=== PATIENT | female | born 1960 | race Caucasian/White ===

== ENCOUNTER 2024-11-25 14:22 | Outpatient (REF) | payer OTHER, SELFPAY ==
--- OUTSIDE RECORDS SUMMARY | 2024-11-25 18:30 | XMS_ITS | Clinical Summary ---
Author Organization [facility] [address] [place] [address] Address [address] [place], [place] Phone Care Team Providers Care Brake Lining Driller Name Role Phone Didi Suarez MD Primary Care Provider [phone] Allergies Active Allergy Reactions Criticality Noted Date [...] Description 09/08/2024 Telephone Obstetrics and Gynecology - [address] [phone] Juliette Lucas MD Appointment 09/07/2024 Telephone Obstetrics and Gynecology - [address] [phone] Juliette Lucas MD pcp office called from Last 3 Months Immunizations Name Administration Dates Next Due [employer] SARS-CoV-2 COVID -19, vector-nr, rS-Ad26, preservative free 12/16/2020 Surgical History Surgery Date Site/Laterality Comments OTHER SURGICAL HISTORY PROCEDURE: NC DILATION & CURETTAGE DX&/THER NONOBSTETRIC OTHER SURGICAL [...] AM EDT Office Visit Obstetrics and Gynecology [address] [phone] Janie Cano, SIDRA [address] [place] [address] Health Maintenance Due Date Last Done Comments [...] Most Recently Relevant to Health Maintenance Insurance [facility] Care Teams Brake Lining Driller Relationship Specialty Start Date End Date Didi Suarez MD [address] [place] [phone] PCP - General Internal Medicine 09/23/17
--- OUTSIDE RECORDS SUMMARY | 2024-11-25 18:30 | XMS_ITS | Clinical Summary ---
Author Organization [facility] Address [address] [place] [address] Care Team Providers Care Commissions Manager Name Role Phone Unknown, Primary Care Provider [...] age to complete this topic Care Teams Commissions Manager Relationship Specialty Start Date End Date Unknown, PCP - General 09/03/23
[2024-11-25 19:06] LABS: Ferritin 101 ng/mL (10-250)
[2024-11-25 19:29] LABS: Folate 15.4 ng/mL (> or = 4.0); Vitamin B12 1044 pg/mL (200-900)
== END 2024-11-25 14:23 | disposition home or self-care (01) ==
LOC: HO.HKASLDS 14:22
PROVIDERS: PCP Internal Medicine; Visit Provider Psychiatry & Neurology Neurology
DX: G47.62 Sleep related leg cramps (principal)
CPT/HCPCS: 36415; 82607; 82728; 82746

== ENCOUNTER 2024-11-25 14:22 | Outpatient (AMB) | payer OTHER, SELFPAY ==
--- NOTE | 2024-11-25 14:34 | MHC.OFFVIS ---
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 Intake Note: patient referred by Geeta Crane for bilateral leg cramps Allergies erythromycin base Allergy (Severe, Verified 11/25/24 14:38) rash sulfamethoxazole [From Bactrim] Allergy (Severe, Verified 11/25/24 14:38) Rash trimethoprim [From Bactrim] Allergy (Severe, Verified 11/25/24 14:38) Rash Penicillins Allergy (Mild, Verified 11/25/24 14:38) gi upset Medication List - Last Reconciled 11/25/24 by Emmanuelle Rich MD calcium carb,[id number] 315 mg-250 unit -200 mg (Citracal-D3 Plus Heart Health) tabs PO magnesium 250 mg PO DAILY potassium citrate mg PO HPI Comments Details: 64y/o right handed female comes for evaluation of nocturnal leg cramps. she has been having these cramps intermittently for over 10 years but for the past 6 months the cramps increased in frequency and intensity.It is usually when she is resting or sleeping, worse in the later part of the day. Getting up and walking helps. Now she has some symptoms during daytime too.The cramps are in her jt calves, sometimes hamstrings .No sensory symptoms. she wakes up with cramps in sleep - 3-5 times a night she also noticed numbness and tingling in her left lateral thigh 6 mths ago. It has decreased in intensity now.she has neck pain but no back pain she has stress incontinence . No trouble walking Her mother had leg cramps. she denies snoring . 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 [facility] Medical History Elbow dislocation Carpal tunnel syndrome Osteoporosis Surgical History S/P trigger finger release H/O parathyroidectomy History of tonsillectomy and adenoidectomy History of rotator cuff surgery Family History Father CAD (coronary artery disease) Type 2 diabetes mellitus Mother Pancreatic cancer Type 2 diabetes mellitus Sister Type 2 diabetes mellitus Ovarian carcinoma Social History Alcohol intake: current Comment: 1 glass of wine Patient Tobacco Use Status: Never used Tobacco Physical Exam Vital Signs: Last Vital Signs Pulse 69 11/25/24 14:37 BP 126/78 11/25/24 14:37 Pulse Ox 99 11/25/24 14:37 Oxygen Delivery Method Room Air 11/25/24 14:37 BMI result Body Mass Index 26.0 Const General: cooperative, healthy appearing and comfortable Nutritional Appearance: average body habitus Orientation/consciousness: patient oriented x3 Eyes Pupils: Equal, round and reactive pupils present Neuro General: patient oriented x3, gait normal, tone normal, moves all extremities and no focal motor deficits Cranial nerves: Yes Facial sensation intact/muscles of mastication intact, Yes Equal, round and reactive pupils present, Yes Bilaterally intact EOM present, Yes Nystagmus not present, Yes Normal facial strength present, Yes Midline tongue present, Yes Symmetric palate elevation present and Yes Ability to bilaterally elevate shoulders present Cognition (Neuro): normal cognition Gait exam (Neuro): Normal gait present Motor exam (neuro): 5/5 motor strength present throughout and Normal motor muscle tone present throughout Deep tendon reflexes (DTR's): Right triceps reflex intensity grade: 3+, Left triceps reflex intensity grade: 3+, Rt Biceps (C5, C6): 3+, Left biceps reflex intensity grade: 3+, Right brachioradialis reflex intensity grade: 3+, Left brachioradialis reflex intensity grade: 3+, Right patellar reflex intensity grade: 3+ and Left patellar reflex intensity grade: 3+ Coordination: [id number] test normal Assessment & Plan Assessment & Plan (1) Nocturnal leg cramps: Comment: ? periodic limb movements Code(s): G47.62 - Sleep related leg cramps Category: Medical Plan I will check her ferritin level as levels below 55 is associated with leg cramps. I will trial her on gabapentin 100mg qhs and f/u Orders: Orders Ferritin Today G47.62 - Sleep related leg cramps Vitamin B12 and Folate Today G47.62 - Sleep related leg cramps Medications: New gabapentin 100 mg PO BEDTIME 30 caps 6RF Coding Level of Care Code New Pt Level 4 (19036) Diagnoses Nocturnal leg cramps G47.62
[2024-11-25 14:37] VITALS: BP 126/78; PULSE 69; O2SAT 99; BMI 26.0
--- OUTSIDE RECORDS SUMMARY | 2024-11-25 17:32 | XMS_ITS | Encounter Summary ---
Author Organization [facility] Address [phone] Critical [place] [address] Care Team Providers Care Casting And Curing Operator Name Role Phone Kat Shay Harika BUI Unavailable [phone] Kavita Schneider PA-C Unavailable Trell Vásquez MD Unavailable [phone]CS Unavailable [email or web address] Cameron Dutton Unavailable [phone] Didi Suarez MD Primary Care Provider Linh Gong MONITORING MANAGER Primary Care Provider Geeta Crane MONITORING MANAGER Primary Care Provider Encounter Details Date Type Department Care Team (Late st Contact Info) Description 04/20/2021 Ancillary Orders Virtual Department [address] [place] [address] Didi Suarez MD [address] [place] [address] Breast screening Social History Tobacco Use Types Packs/Day Years Used Date Smoking Tobacco: Never Smokeless Tobacco: Never Alcohol Use Standard Drinks/Week Comments Yes 0 (1 standard drink = 0.6 oz pur e alcohol) Sex and Gender Information Value Date Recorded Sex Assigned at Not on file Gender Identity Not on file Sexual Orientation Not on file documented as of this encounter Plan of Treatment Not on file documented as of this encounter Results * BI MAMMOGRAM SCREENING WITH TOMOSYNTHESIS WITH CAD (BILATERAL) (07/02/2021 11:05 AM EDT) Anatomical Region Laterality Modality Breast Left, Breast Right, Breast Bilateral Bila teral Mammography 07/02/2021 11:1 7 AM EDT Impressions 07/02/2021 11:19 AM EDT No mammographic evidence of malignancy. ??Recommend routine annual surveillance. BI-RADS CATEGORY: ??2 - Benign finding. DENSITY: ??The breast tissue is heterogeneously dense, which could obscure a lesion on mammography. Narrative 07/02/2021 11:19 AM EDT 61-year-old female with no current breast symptoms. ??Comparison made to previous on 06/29/2020 and as far back as 05/26/2015. ??Interpretation made in conjunction with computer-aided detection and tomosynthesis. The breasts are heterogeneously dense, which may obscure small masses. Stable bilateral nodularity. There are no suspicious masses, areas of architectural distortion, or suspicious clusters of microcalcifications. Procedure Note Amador Barriga MD - 07/02/2021 61-year-old female with no current breast symptoms. Comparison made toprevious on 06/29/2020 and as far back as 05/26/2015. Interpretation madein conjunction with computer-aided detection and tomosynthesis. The breasts are heterogeneously dense, which may obscure small masses.Stable bilateral nodularity. There are no suspicious masses, areas of architectural distortion, orsuspicious clusters of microcalcifications. IMPRESSION: No mammographic evidence of malignancy. Recommend routine annualsurveillance. BI-RADS CATEGORY: 2 - Benign finding. DENSITY: The breast tissue is heterogeneously dense, which could obscurea lesion on mammography. Didi Suarez MD IMG MG EXAMS documented in this encounter Visit Diagnoses Diagnosis Breast screening Breast screening, unspecified Breast screening Breast screening, unspecified documented in this encounter Care Teams Casting And Curing Operator Relationship Specialty Start Date End Date Didi Suarez MD [address] [facility] 1 [place] [address] [email or web address] PCP - General Internal Medicine 03/11/18 05/21/23 Linh Gong, MONITORING MANAGER [address] [address] PCP - General Nurse Practitioner 05/22/23 09/16/24 Geeta Crane, BAUDILIO [address] [place] [address] [place] [phone] [email or web address] PCP - General Nurse Practitioner 09/17/24 Shay Stephens DO [address] [place] [address] Orth[facility], [place] [address] [email or web address] Historical LMR Provider 07/16/17 Kavita Schneider PA-C [address] [place] [address] Orthopedics Sports [facility], [place] [address] [email or web address] Historical LMR Provider 07/16/17 10/06/21 Trell Vásquez MD [address] [place] [address] [address] [place] [address] Historical LMR Provider 07/16/17 10/06/21 Doris Martin, NATHAN Historical LMR Provider 07/16/17 10/06/21 Cameron Dutton PA [address] [place] [address] [id number] Historical LMR Provider 07/16/17 2 documented as of this encounter Additional Source Comments The information contained in this document represents components of the legal health record. It is not the complete legal health record.[facility]
--- OUTSIDE RECORDS SUMMARY | 2024-11-25 17:32 | XMS_ITS | Encounter Summary ---
Author Organization [facility] Address [phone] [facility] [place] [address] Care Team Providers Care News Agent Name Role Phone Shay Stephens DO Unavailable [phone] Linh Gong FIBERGLASSER Primary Care Provider Geeta Crane FIBERGLASSER Primary Care Provider Encounter Details Date Type Department Care Team (Late st Contact Info) Description 05/22/2023 Transcribe Orders Virtual Department 30 [place] [address] Linh Gong NP 35 [facility] 1 [place] [address] Breast screening (Primary Dx) Social History Tobacco Use Types Packs/Day Years Used Date Smoking Tobacco: Never Smokeless Tobacco: Never Alcohol Use Standard Drinks/Week Comments Yes 7 (1 standard drink = 0.6 oz pur e alcohol) Education Answer Date Recorded Are you interested in more education? Not on tonja e 01/24/2023 Are you concerned about learning? Not on file 01/24/2023 No 01/24/2023 No 01/24/2023 Digital Access Answer Date Recorded No 02/24/2023 No 02/24/2023 Reliable internet access at home? Not on file 02/24/2023 Device with a working camera? Not on file Intimate Partner Violence Answer Date R ecorded Are you denied basic needs s uch as food, clothing, or medical care? No 03/03/2023 In the past 12 months have y ou been in a relationship with a person who hurts, threatens, or tries to control you? No 03/03/2023 Are you denied basic needs s uch as food, clothing, or medical care? No 03/03/2023 In the past 12 months have y ou been in a relationship with a person who hurts, threatens, or tries to control you? No 03/03/2023 Sex and Gender Information Value Date Recorded Sex Assigned at Not on file Gender Identity Not on file Sexual Orientation Not on file documented as of this encounter Plan of Treatment Not on file documented as of this encounter Results * BI MAMMOGRAM SCREENING WITH TOMOSYNTHESIS WITH CAD (BILATERAL) (08/15/2023 11:39 AM EST) Anatomical Region Laterality Modality Breast Left, Breast Right, Breast Bilateral Bila teral Mammography 08/15/2023 2:52 PM EST Impressions 08/15/2023 4:40 PM EST No mammographic signs of malignancy. ??Annual screening is recommended. BI-RADS CATEGORY: ??1 - Negative. DENSITY: ??There are scattered fibroglandular densities. Narrative 08/15/2023 4:40 PM EST Bilateral mammography is performed in conjunction with computed aided detection. 3-D tomography along with 2-D C view imaging was also performed. Comparison made to previous dated as far back as 07/06/2004 and as recent as 08/14/2022. No suspicious masses, areas of architectural distortion or suspicious microcalcifications. Procedure Note Klaus Arellano MD - 08/15/2023 Bilateral mammography is performed in conjunction with computed aideddetection. 3-D tomography along with 2-D C view imaging was alsoperformed. Comparison made to previous dated as far back as 07/06/2004 andas recent as 08/14/2022. No suspicious masses, areas of architectural distortion or suspiciousmicrocalcifications. IMPRESSION: No mammographic signs of malignancy. Annual screening is recommended. BI-RADS CATEGORY: 1 - Negative. DENSITY: There are scattered fibroglandular densities. Linh Gong FIBERGLASSER IMG MG EXAMS documented in this encounter Visit Diagnoses Diagnosis Breast screening- Primary Breast screening, unspecified Breast screening Breast screening, unspecified documented in this encounter Additional Health Concerns Assessment Noted Time PHQ-2 Depression Total Score: 0 07/23/20 12:08 PM EDT documented as of this encounter Care Teams News Agent Relationship Specialty Start Date End Date Linh Gong, BAUDILIO [address] [facility] [address] [place] [address] PCP - General Nurse Practitioner 05/22/23 09/16/24 Geeta Crane NP [address] [place] [address] [place] [address] [email or web address] PCP - General Nurse Practitioner 09/17/24 Shay Stephens DO [address] [place] [address] Orthopedics & Sports Medicine, [place] [address] [email or web address] Historical LMR Provider 07/16/17 documented as of this encounter Additional Source Comments The information contained in this document represents components of the legal health record. It is not the complete legal health record.[facility]
--- OUTSIDE RECORDS SUMMARY | 2024-11-25 17:32 | XMS_ITS | Encounter Summary ---
Author Organization [facility] Address [phone] [facility] [place] [address] Care Team Providers Care Banking Manager Name Role Phone GraniteShay DO Unavailable Kavita Schneider PA-C Unavailable [phone] Trell Vásquez MD Unavailable [phone]CS Unavailable [email or web address] Cameron Dutton Unavailable Didi Suarez MD Primary Care Provider [phone] Linh Gong LICENSING SERVICES CLERK Primary Care Provider Geeta Crane LICENSING SERVICES CLERK Primary Care Provider Encounter Details Date Type Department Care Team (Late st Contact Info) Description 04/20/2021 Procedure Pass [facility] - [address] [place] [address] Social History Tobacco Use Types Packs/Day Years [...] on file documented as of this encounter Visit Diagnoses Not on filedocumented in this encounter Care Teams Banking Manager Relationship Specialty Start Date End Date Didi Suarez MD [address] [place] [address] 1 [place] [address] [email or web address] PCP - General Internal Medicine 03/11/18 05/21/23 Linh Gong, BAUDILIO [address] [address] PCP - General Nurse Practitioner 05/22/23 09/16/24 Geeta Crane, BAUDILIO [address] [place] [address] [place] [phone] [email or web address] PCP - General Nurse Practitioner 09/17/24 Shay Stephens DO [address] [place] [address] [facility], [place] [address] [email or web address] Historical LMR Provider 07/16/17 Kavita Schneider PA-C [address] [place] [address] Orth[facility], [place] [address] [email or web address] Historical LMR Provider 07/16/17 10/06/21 Trell Vásquez MD [address] [place] [address] [address] [place] [address] Historical LMR Provider 07/16/17 10/06/21 Doris Martin, NATHAN Historical LMR Provider 07/16/17 10/06/21 Cameron Dutton PA [address] [place] [address] [id number] Historical LMR Provider 07/16/1710/06/ 2 documented as of this encounter Additional Source Comments The information contained in this document represents components of the legal health record. It is not the complete legal health record.[facility]
--- OUTSIDE RECORDS SUMMARY | 2024-11-25 17:33 | XMS_ITS | Clinical Summary ---
Author Organization [facility] [address] [place] [address] Address [address] [place], [place] Phone Care Team Providers Care Field Sales Associate Name Role Phone Didi Suarez MD Primary Care Provider [phone] Allergies Active Allergy Reactions Criticality Noted Date Comments Cephalosporins 06/27/2016 Penicillin G 06/27/2016 Sulfa (Sulfonamide Antibiotics) 05/31 Sulfamethoxazole-Trimethoprim 2015 Medications multivitamin (MULTIPLE VITAMINS ORAL) Take by mouth. Active CHOLECALCIFEROL, VITAMIN D3, ORAL Take by mouth. 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 Encounters Date Type Department Care Team Description 09/08/2024 Telephone Obstetrics and Gynecology - [address] [phone] Juliette [place] MD Appointment 09/07/2024 Telephone Obstetrics and Gynecology - [address] [phone] Juliette [place] MD pcp office called from Last 3 Months Immunizations Name Administration Dates Next Due [employer] SARS-CoV-2 COVID -19, vector-nr, rS-Ad26, preservative free 12/16/2020 Surgical History Surgery Date Site/Laterality Comments OTHER SURGICAL HISTORY PROCEDURE: AR DILATION & CURETTAGE DX&/THER NONOBSTETRIC OTHER SURGICAL HISTORY PROCEDURE: HYSTEROSCOPY, DIAGNOSTIC Medical History Medical History Date Comments Fibroids DX:Fibroids; COM MENT: 2.5cm fundal by 2017 sono Hypothyroidism DX:Hypothyroidis m IUD (intrauterine device) in place February 2014 DX:IUD (intrauterine device) in place Family History Medical History Relation Name Comments Breast cancer Aunt Pancreatic cancer Mother Other cancer Sister Ovary Colon cancer Neg Hx Prostate cancer Neg Hx Uterine cancer Neg Hx Relation Name Status Comments Aunt Mother Pancreatic CA, DM Sister Social History Tobacco Use Types Packs/Day Years Used Date Smoking Tobacco: Never Smokeless Tobacco: Never Alcohol Use Standard Drinks/Week Comments Yes 0 (1 standard drink = 0.6 oz pur e alcohol) Comments Unknown Sex and Gender Information Value Date Recorded Sex Assigned at Not on file Legal Sex Female 9:55 PM EST Gender Identity Not on file Sexual Orientation Not on file Obstetrics History Last Filed Vital Signs Vital Sign Reading Time Taken Comments Blood Pressure 126/81 12/13/2022 8:40 AM EDT Pulse 61 12/13/2022 8:40 AM EDT Temperature - - Respiratory Rate - - Oxygen Saturation - - Inhaled Oxygen Concentration - - Weight 62.4 kg (137 lb 9.6 oz) 12/13/2022 8:40 A M EDT Height 160 cm (5' 3 ) 12/13/2022 8:40 AM EDT Body Mass Index 24.37 12/13/2022 8:40 AM EDT Plan of Treatment Upcoming Encounters Date Type Department Care Team (Late st Contact Info) Description 12/14/2024 8:45 AM EDT Office Visit Obstetrics and Gynecology [address] [phone] Janie Cano, SIDRA [address] [place] [address] Health Maintenance Due Date Last Done Comments Breast Cancer Screening 1961 DTaP,Tdap,and Td Vaccines (1 - Tdap) 1980 Pneumococcal Vaccine: 50+ Ye ars (1 of 1 - PCV) 2011 Zoster Vaccines (1 of 2) 2011 Cholesterol Screening (Lipid Panel) 09/07/2022 Colorectal Cancer Screening: Colonoscopy 09/07/2022 Depression Screening 09/07/2022 HIV Screening 09/07/2022 Hepatitis C Screening 09/07/2022 Social Influencers of Health Screening 09/07/2022 COVID-19 Vaccine (2 - 2023-2 5 season) 2024 12/16/2020 Influenza Vaccine (#1) 2024 Cervical Cancer Screening: HPV 12/14/2027 12/13/2022 RSV Immunization Patients 60 + Years Old (1 - 1-dose 75+ series) 2036 HIB Vaccines Aged Out No longer eligi ble based on patient's age to complete this topic HPV Vaccines Aged Out No longer eligi ble based on patient's age to complete this topic Hepatitis A Vaccines Aged Out No long er eligible based on patient's age to complete this topic Hepatitis B Vaccines Aged Out No long er eligible based on patient's age to complete this topic IPV Vaccines Aged Out No longer eligi ble based on patient's age to complete this topic MMR Vaccines Aged Out No longer eligi ble based on patient's age to complete this topic Meningococcal ACWY Vaccine Aged Out N o longer eligible based on patient's age to complete this topic Meningococcal B Vacine Aged Out No lo nger eligible based on patient's age to complete this topic Pneumococcal Vaccine: Pediat rics (0 to 5 Years) and At-Risk Patients (6 to 64 Years) Aged Out No longer eligi ble based on patient's age to complete this topic RSV Immunization Patients Un vy 20 months Aged Out No longer eligible b ased on patient's age to complete this topic Varicella Vaccines Aged Out No longer eligible based on patient's age to complete this topic Procedures Procedure Name Priority Date/Time Associated Diagnosis Comments HPV Routine 12/13/2022 from Last 3 Months or Most Recently Relevant to Health Maintenance Results * Cervical Cancer Screening: HPV (12/13/2022) Cervical Cancer Screening: HPV negative, abstracted Historical Provider MD HEALTH MAINTENANCE Final Result from Last 3 Months or Most Recently Relevant to Health Maintenance Insurance [facility] Care Teams Field Sales Associate Relationship Specialty Start Date End Date Didi Suarez MD [address] [place] [phone] PCP - General Internal Medicine 09/23/17
--- OUTSIDE RECORDS SUMMARY | 2024-11-25 17:33 | XMS_ITS | Encounter Summary ---
Author Organization [facility] Address [phone] [facility] [place] [address] Care Team Providers Care Historian Research Assistant Name Role Phone Kat Shay Harika BUI Unavailable [phone] Kavita Schneider PA-C Unavailable Trell Vásquez MD Unavailable Doris Martin RDCS Unavailable [email or web address] Cameron Dutton Unavailable [phone] Didi Suarez MD Primary Care Provider Linh Gong COPIER FIELD SERVICE TECHNICIAN Primary Care Provider Geeta Crane COPIER FIELD SERVICE TECHNICIAN Primary Care Provider Encounter Details Date Type Department Care Team (Late st Contact Info) Description 04/10/2020 Ancillary Orders Virtual Department 30 [place] [address] Didi Suarez MD 25 [place] [address] Breast screening Social History Tobacco Use Types [...] MAMMOGRAM SCREENING WITH TOMOSYNTHESIS WITH CAD (BILATERAL) (06/29/2020 8:19 AM EDT) Anatomical Region Laterality Modality Breast Left, Breast Right, Breast Bilateral Bila teral Mammography 06/29/2020 9:46 AM EDT Impressions 06/29/2020 9:50 AM EDT No findings suspicious for malignancy are identified. In the absence of a worrisome palpable abnormality, annual screening mammography is recommended. BI-RADS CATEGORY 1 - NEGATIVE DENSITY: ??The breast tissue is heterogeneously dense, which may obscure small masses Narrative 06/29/2020 9:50 AM EDT COMPARISON: 05/20/2014 through 06/28/2019 Bilateral 3-D tomosynthesis with 2-D reconstructions in the CC and MLO projection. ??Computer-aided detection system also utilized. No new mass, asymmetry, architectural distortion or suspicious calcifications have become apparent on either side. Didi Suarez MD IMG MG EXAMS documented in this encounter Visit Diagnoses Diagnosis Breast screening Breast screening, unspecified Breast screening Breast screening, unspecified documented in this encounter Care Teams Historian Research Assistant Relationship Specialty Start Date End Date Didi Suarez MD [address] [place] [address] [email or web address] PCP - General Internal Medicine 03/11/18 05/21/23 Linh Gong NP [address] [address] PCP - General Nurse Practitioner 05/22/23 09/16/24 Geeta Crane NP [address] [place] [address] [place] [address] [email or web address] PCP - General Nurse Practitioner 09/17/24 Shay Stephens DO 4 [facility] Orth[facility] Sports Medicine, [facility] [place] [address] Historical LMR Provider 07/16/17 Kavita Schneider PA-C 4 [facility] Orthopedics & Sports [facility], [place] [address] Historical LMR Provider 07/16/17 10/06/21 Trell Vásquez MD 22 [facility], [address] [place] [address] Historical LMR Provider 07/16/17 10/06/21 Doris Martin, JAMALCS Historical LMR Provider 07/16/17 10/06/21 Cameron Dutton PA [address] [place] [address] Historical LMR Provider 07/16/17 2 documented as of this encounter Additional Source Comments The information contained in this document represents components of the legal health record. It is not the complete legal health record.[facility]
--- OUTSIDE RECORDS SUMMARY | 2024-11-25 17:33 | XMS_ITS | Clinical Summary ---
Author Organization [employer] [facility] Address [address] [place] [address] Care Team Providers Care Health Service Worker Name Role Phone Unknown, Primary Care Provider Unavailabl e Social History Tobacco Use Types Packs/Day Years Used Date Smoking Tobacco: Never Assessed Sex and Gender Information Value Date Recorded Sex Assigned at Not on file Gender Identity Not on file Sexual Orientation Not on file Job Start Date Occupation Industry Not on file Not on file Not on file Plan of Treatment Health Maintenance Due Date Last Done Comments Hepatitis C Screening 1961 Depression Screening 1973 Preventative Health Evaluation 1979 Cervical Cancer Screening (Pap Smear) 1982 Colon Cancer Screening (Colonoscopy) 2006 Breast Cancer Screening (Mammogram) 2011 Shingrix-Zoster Vaccine (1 o f 2) 2011 DTap / Tdap / Td (2 - Td or Tdap) 07/04/2019 07/04/2009 COVID-19 Vaccine (2023-2 5 season) 2024 08/13/2021, 12/16/2020 Influenza Vaccine (#1) 2024 2, 10/09/2021, 08/16/2020 RSV Adult > 60+ Yrs or (1 - 1-dose 75+ series) 2036 Hepatitis B Vaccines Aged Out No long er eligible based on patient's age to complete this topic Pneumococcal Vaccine Aged Out No long er eligible based on patient's age to complete this topic RSV Ped < 20 months Aged Out No longe r eligible based on patient's age to complete this topic Care Teams Health Service Worker Relationship Specialty Start Date End Date Unknown, PCP - General 09/03/23
--- OUTSIDE RECORDS SUMMARY | 2024-11-25 17:33 | XMS_ITS | Encounter Summary ---
Author Organization [facility] Address [phone] Formerly [facility] [place] [address] Care Team Providers Care Thoroughbred Horse Farm Manager Name Role Phone Kat Shay Harika BUI Unavailable Kavita Schneider PA-C Unavailable Trell Vásquez MD Unavailable Doris Martin RDCS Unavailable [email or web address] Cameron Dutton Unavailable Didi Suarez MD Primary Care Provider Linh Gong LOAD MANAGER Primary Care Provider Geeta Crane LOAD MANAGER Primary Care Provider Encounter Details Date Type Department Care Team (Late st Contact Info) Description 05/18/2018 Ancillary Orders Virtual Department 30 [place] [address] Didi Suarez MD 25 [place] [address] Breast screening Social History Tobacco Use Types [...] MAMMOGRAM SCREENING WITH TOMOSYNTHESIS WITH CAD (BILATERAL) (06/26/2018 8:04 AM EDT) Anatomical Region Laterality Modality Breast Left, Breast Right, Breast Bilateral Bila teral Mammography 06/26/2018 11:4 7 AM EDT Impressions 06/26/2018 11:52 AM EDT No mammographic signs of malignancy. ??Annual screening is recommended. BI-RADS CATEGORY: 1 - Negative. DENSITY: ??The breast tissue is heterogeneously dense, an appearance which lowers the sensitivity of mammography. ?? POS - CDHMAMA BI-RADS 1 -- negative findings (within normal) Narrative 06/26/2018 11:52 AM EDT Bilateral mammography is performed in conjunction with computed aided detection. 3-D tomography along with 2-D C view imaging was also performed. Comparison made to previous dated as far back as 04/27/2012 and as recent as 06/24/2017. ?? No suspicious masses, areas of architectural distortion or suspicious microcalcifications. Procedure Note Klaus Bell MD - 06/26/2018 Bilateral mammography is performed in conjunction with computed aideddetection. 3-D tomography along with 2-D C view imaging was alsoperformed. Comparison made to previous dated as far back as 04/27/2012 andas recent as 06/24/2017. No suspicious masses, areas of architectural distortion or suspiciousmicrocalcifications. IMPRESSION: No mammographic signs of malignancy. Annual screening is recommended. BI-RADS CATEGORY: 1 - Negative. DENSITY: The breast tissue is heterogeneously dense, an appearance whichlowers the sensitivity of mammography. POS - CDHMAMA BI-RADS 1 -- negative findings (within normal) Didi Suarez MD IMG MG EXAMS documented in this encounter Visit Diagnoses Diagnosis Breast screening Breast screening, unspecified Breast screening Breast screening, unspecified documented in this encounter Care Teams Thoroughbred Horse Farm Manager Relationship Specialty Start Date End Date Didi Suarez MD [address] [place] [address] [email or web address] PCP - General Internal Medicine 03/11/18 05/21/23 Linh Gong, BAUDILIO [facility] [address] [address] PCP - General Nurse Practitioner 05/22/23 09/16/24 Geeta Crane, BAUDILIO [address] [place] [address] [place] [address] [email or web address] PCP - General Nurse Practitioner 09/17/24 Shay Stephens DO [address] [place] [address] [address] [facility], [place] [address] [email or web address] Historical LMR Provider 07/16/17 Kavita Schneider PA-C [address] [place] [address] [place] [address] [email or web address] Historical LMR Provider 07/16/17 10/06/21 Trell Vásquez MD [address] [address] Historical LMR Provider 07/16/17 10/06/21 Doris Martin, NATHAN Historical LMR Provider 07/16/17 10/06/21 Cameron Dutton PA [address] [place] [address] Historical LMR Provider 07/16/17 2 documented as of this encounter Additional Source Comments The information contained in this document represents components of the legal health record. It is not the complete legal health record.[facility]
--- OUTSIDE RECORDS SUMMARY | 2024-11-25 17:33 | XMS_ITS | Encounter Summary ---
Author Organization [facility] Address [phone] Formerly [facility] [employer] [place] [address] Care Team Providers Care Cement Sprayer Helper Name Role Phone Shay Stephens DO Unavailable [phone] Didi Suarez MD Primary Care Provider [phone] Linh Gong SPRING CLIPPER Primary Care Provider Geeta Crane SPRING CLIPPER Primary Care Provider Encounter Details Date Type Department Care Team (Late st Contact Info) Description 01/07/2023 Procedure Pass [facility] Endoscopy Admitting Dept Virtual Department [address] [place] [address] Social History Tobacco Use Types Packs/Day Years [...] Diagnoses Not on filedocumented in this encounter Additional Health Concerns Assessment Noted Time PHQ-2 Depression Total Score: 0 07/23/20 22 12:08 PM EDT documented as of this encounter Care Teams Cement Sprayer Helper Relationship Specialty Start Date End Date Didi Suarez MD [address] [place] [address] [email or web address] PCP - General Internal Medicine 03/11/18 05/21/23 Linh Gong, BAUDILIO [address] [address] PCP - General Nurse Practitioner 05/22/23 09/16/24 Geeta Crane, BAUDILIO [address] [place] [address] [place] [phone] [email or web address] PCP - General Nurse Practitioner 09/17/24 Shay Stephens DO [address] [place] [address] Orthopedics & Sports Medicine, [place] [address] [email or web address] Historical LMR Provider 07/16/17 documented as of this encounter Additional Source Comments The information contained in this document represents components of the legal health record. It is not the complete legal health record.[facility]
--- OUTSIDE RECORDS SUMMARY | 2024-11-25 17:33 | XMS_ITS | Encounter Summary ---
Author Organization [facility] Address [phone] Count includes the [facility] [place] [address] Care Team Providers Care Sock Liner Name Role Phone Shay Stephens DO Unavailable [phone] Linh Gong CELL ROOM SUPERVISOR Primary Care Provider Geeta Crane CELL ROOM SUPERVISOR Primary Care Provider Encounter Details Date Type Department Care Team (Late st Contact Info) Description 05/18/2024 Procedure Pass [facility] - [address] [place] [address] Social History Tobacco Use Types Packs/Day Years [...] documented as of this encounter Care Teams Sock Liner Relationship Specialty Start Date End Date Linh Gong NP [address] [facility] [address] [place] [address] PCP - General Nurse Practitioner 05/22/23 09/16/24 Geeta Crane NP [address] [place] [address] [place] [address] [email or web address] PCP - General Nurse Practitioner 09/17/24 Shay Stephens DO [address] [place] [address] Orthopedics & Sports Medicine, [place] [address] Historical LMR Provider 07/16/17 documented as of this encounter Additional Source Comments The information contained in this document represents components of the legal health record. It is not the complete legal health record.[facility]
--- OUTSIDE RECORDS SUMMARY | 2024-11-25 17:33 | XMS_ITS | Encounter Summary ---
Author Organization [facility] Address [phone] Formerly [facility] [place] [address] Care Team Providers Care Child Welfare Consultant Name Role Phone Elbert, Shay Shabazz DO Unavailable [phone] Linh Gong ENTERPRISE SECURITY ARCHITECT Primary Care Provider Geeta Crane ENTERPRISE SECURITY ARCHITECT Primary Care Provider Encounter Details Date Type Department Care Team (Latest Contact Info) Description 05/18/2024 Transcribe Orders Virtual Department 30 [place] [address] Chau Godwin MD [address] [address] Breast screening (Primary Dx) Social History Tobacco [...] MAMMOGRAM SCREENING WITH TOMOSYNTHESIS WITH CAD (BILATERAL) (09/17/2024 10:49 AM EST) Anatomical Region Laterality Modality Breast Left, Breast Right, Breast Bilateral Bila teral Mammography 09/19/2024 5:35 AM EST Impressions 09/19/2024 5:36 AM EST No mammographic evidence of malignancy in either breast. Annual screening mammography is recommended. BI-RADS 1 NEGATIVE The patient will be notified of the results and recommendations. Narrative 09/19/2024 5:36 AM EST BI MAMMOGRAM SCREENING WITH TOMOSYNTHESIS WITH CAD (BILATERAL) Additional patient information: Screening. COMPARISON: Comparison is made with relevant prior imaging. Breast composition: There are scattered areas of fibroglandular density. FINDINGS: No abnormal masses, suspicious calcifications, or other significant findings are identified mammographically in either breast. There has been no significant interval change. Procedure Note Linh Pond MD - 09/19/2024 BI MAMMOGRAM SCREENING WITH TOMOSYNTHESIS WITH CAD (BILATERAL) Additional patient information: Screening. COMPARISON: Comparison is made with relevant prior imaging. Breast composition: There are scattered areas of fibroglandular density. FINDINGS: No abnormal masses, suspicious calcifications, or other significantfindings are identified mammographically in either breast. There has been no significant interval change. IMPRESSION: No mammographic evidence of malignancy in either breast. Annual screening mammography is recommended. BI-RADS 1 NEGATIVE The patient will be notified of the results and recommendations. Chau Godwin MD IMG MG EXAMS documented in this encounter Visit Diagnoses Diagnosis Breast screening- Primary Breast screening, unspecified Breast screening Breast screening, unspecified documented in this encounter Additional Health Concerns Assessment Noted Time PHQ-2 Depression Total Score: 0 07/23/20 12:08 PM EDT documented as of this encounter Care Teams Child Welfare Consultant Relationship Specialty Start Date End Date Linh Gong, BAUDILIO [address] [facility] [address] [place] [address] PCP - General Nurse Practitioner 05/22/23 09/16/24 Geeta Crane NP [address] [place] [address] [place] [address] [email or web address] PCP - General Nurse Practitioner 09/17/24 Shay Stephens DO [address] [place] [address] Orthopedics & Sports Medicine, [place] [address] [email or web address] Historical LMR Provider 07/16/17 documented as of this encounter Additional Source Comments The information contained in this document represents components of the legal health record. It is not the complete legal health record.[facility]
--- OUTSIDE RECORDS SUMMARY | 2024-11-25 17:33 | XMS_ITS | Encounter Summary ---
Author Organization [facility] Address [phone] [facility] [place] [address] Care Team Providers Care Cane Stripper Name Role Phone Shay Stephens DO Unavailable [phone] Didi Suarez MD Primary Care Provider [phone] Linh Gong YARN COMBER Primary Care Provider Geeta Crane YARN COMBER Primary Care Provider Encounter Details Date Type Department Care Team (Late st Contact Info) Description 07/24/2022 Procedure Pass [facility] - [address] [place] [address] Social History Tobacco Use Types Packs/Day Years Used Date Smoking Tobacco: Never Smokeless Tobacco: Never Alcohol Use Standard Drinks/Week Comments Yes 10 (1 standard drink = 0.6 oz pu re alcohol) Sex and Gender Information Value Date [...] documented as of this encounter Care Teams Cane Stripper Relationship Specialty Start Date End Date Didi Suarez MD [address] [place] [address] [email or web address] PCP - General Internal Medicine 03/11/18 05/21/23 Linh Gong, BAUDILIO [address] [address] PCP - General Nurse Practitioner 05/22/23 09/16/24 Geeta Crane NP [address] [place] [address] [place] [phone] [email or web address] PCP - General Nurse Practitioner 09/17/24 Shay Stephens DO [address] [place] [address] Orthopedics & Sports Medicine, [place] [address] [email or web address] Historical LMR Provider 07/16/17 documented as of this encounter Additional Source Comments The information contained in this document represents components of the legal health record. It is not the complete legal health record.[facility]
--- OUTSIDE RECORDS SUMMARY | 2024-11-25 17:33 | XMS_ITS | Encounter Summary ---
Author Organization [facility] Address [phone] [facility] [place] [address] Care Team Providers Care Sports Physiologist Name Role Phone ApplingShay DO Unavailable [phone] Kavita Schneider PA-C Unavailable [phone] Trell Vásquez MD Unavailable [phone] Doris Martin RDCS Unavailable [email or web address] Cameron Dutton Unavailable Didi Suarez MD Primary Care Provider Linh Gong TUBE REPAIRER Primary Care Provider Geeta Crane TUBE REPAIRER Primary Care Provider Encounter Details Date Type Department Care Team (Late st Contact Info) Description 05/30/2020 Procedure Pass [facility] - [address] [place] [address] Social History Tobacco Use Types Packs/Day Years [...] on filedocumented in this encounter Care Teams Sports Physiologist Relationship Specialty Start Date End Date Didi Suarez MD [address] [place] [address] 1 [place] [address] [email or web address] PCP - General Internal Medicine 03/11/18 05/21/23 Linh Gong, BAUDILIO [address] [address] PCP - General Nurse Practitioner 05/22/23 09/16/24 Geeta Crane, BAUDILIO [address] [place] [address] [place] [phone] [email or web address] PCP - General Nurse Practitioner 09/17/24 Shay Stephens DO [address] [place] [address] Orthopedics & Sports [facility], [place] [address] [email or web address] Historical LMR Provider 07/16/17 Kavita Schneider PA-C [address] [place] [address] Orthopedics Sports [facility], [place] [address] [email or web address] Historical LMR Provider 07/16/17 10/06/21 Trell Vásquez MD [address] [place] [address] [address] [place] [address] Historical LMR Provider 07/16/17 10/06/21 Doris Martin, NATHAN Historical LMR Provider 07/16/17 10/06/21 Cameron Dutton PA [address] [place] [id number] Historical LMR Provider 07/16/17 2 documented as of this encounter Additional Source Comments The information contained in this document represents components of the legal health record. It is not the complete legal health record.[facility]
--- OUTSIDE RECORDS SUMMARY | 2024-11-25 17:33 | XMS_ITS | Encounter Summary ---
Author Organization [facility] Address [phone] Formerly [facility] [place] [address] Care Team Providers Care Link Trainer Maintenance Worker Name Role Phone Kat Shay Shabazz DO Unavailable [phone] Didi Suarez MD Primary Care Provider [phone] Linh Gong WREATH AND GARLAND MAKER HAND Primary Care Provider Geeta Crane WREATH [employer] GARLAND MAKER HAND Primary Care Provider Encounter Details Date Type Department Care Team (Late st Contact Info) Description 03/03/2023 Procedure Pass [facility] Endoscopy Admitting Dept Virtual Department [address] [place] [address] Social History Tobacco Use Types Packs/Day Years [...] documented as of this encounter Care Teams Link Trainer Maintenance Worker Relationship Specialty Start Date End Date Didi Suarez MD [address] [place] [address] [email or web address] PCP - General Internal Medicine 03/11/18 05/21/23 Linh Gong NP 300 [facility] [address] [address] PCP - General Nurse Practitioner 05/22/23 09/16/24 Geeta Crane NP [address] [place] [address] [place] [phone] [email or web address] PCP - General Nurse Practitioner 09/17/24 Shay Stephens DO [address] [place] [address] Orthopedics & Sports Medicine, [place] [address] [email or web address] Historical LMR Provider 07/16/17 documented as of this encounter Additional Source Comments The information contained in this document represents components of the legal health record. It is not the complete legal health record.[facility]
--- OUTSIDE RECORDS SUMMARY | 2024-11-25 17:33 | XMS_ITS | Clinical Summary ---
Author Organization [facility] Address [phone] [facility] [address] [place] [address] Care Team Providers Care Outside Machinist Helper Name Role Phone Shay Stephens DO Unavailable [phone] Geeta Crane NP Primary Care Provider Allergies Active Allergy Reactions Criticality Noted Date Comments Cefaclor Rash Low 11/03/2018 nausea Erythromycin Unknown 03/19/2017 Gluten 06/16/2023 Latex Swelling Medium 01/03/2023 Milk Containing Products (Dairy) 06/16/2023 Penicillin Unknown 03/19/2017 Penicillins 03/02/2024 Other Reaction(s): brother and sister are severely allergic so they don't give me penicillin Sulfamethoxazole-Trimethopri m Rash Low 11/03/2018 Nausea Medications Medication Sig Dispensed Refills Start Date End Date Status cholecalciferol (VITAMIN D3) 2,000 unit tablet Take 1,000 Units by mouth daily. Active Lactobacillus acidophilus (PROBIOTIC ACIDOPHILUS ORAL) Take 1 teaspoonful by mouth every morning. For gut health Active calcium carbonate/vitamin D3 (CALCIUM 500 + D ORAL) 1,200 mg daily. Active triamcinolone acetonide 0.025 % cream Apply topically 2 (two) times a day. Rash external ears, sparingly, 5 days per month. 30 g 07/31/2022 Active Additional Information Patient taking differently: 1 application.Topical2 times daily PRN, Rash external ears, sparingly, 5 days per month., Reported on 12/27/2022 valACYclovir (VALTREX) 500 MG tablet 1 po bid x 3 days prn cold sore episode 30 tablet 1 02/26/2023 Active POTASSIUM GLUCONATE ORAL Take 90 mg by mouth daily. Active magnesium oxide 250 mg (150 mg elemental) Tab Take 250 mg by mouth daily. Active predniSONE (DELTASONE) 10 MG tablet PLEASE SEE ATTACHED FOR DETAILED DIRECTIONS 02/25/2024 Active betamethasone, augmented, (DIPROLENE AF) 0.05 % cream PLEASE SEE ATTACHED FOR DETAILED DIRECTIONS 02/25/2024 Active Active Problems Problem Noted Date Diagnosed Date Right shoulder pain 10/27/2018 History of repair of left rotator cuff 7 Complete tear of left rotator cuff 07/30/2017 Encounters Date Type Department Care Team Description 09/17/2024 10:21 AM EST - 09/17/2024 11:59 PM [facility] Hospital Encounter [address] [place] [address] Chau Godwin MD Discharge Disposition: Home or Self Care 05/18/2024 Procedure Pass [address] [place] [address] from Last 3 Months Immunizations Name Administration Dates Next Due COVID-19 (Pre-07/21) Arturo Vaccine, [id number], PF 12/16/2020 Influenza Quadrivalent Preservative Free IM 07/01,10/09/2021,08/16/2020 Tdap 07/04/2009 Family History Medical History Relation Comments No Known Problems Brother Coronary artery disease Father Diabetes type II Father Heart failure Father Hypertension Father Prostate cancer Father Stroke Father Diabetes type II Mother Hyperlipidemia Mother Pancreatic cancer Mother Ovarian cancer Sister 25 years post hy sterectomy and cancer treatment Thyroid disease Sister Relation Status Comments Brother Father (Age 93) Mother (Age 77) Sister Social History Tobacco Use Types Packs/Day Years Used Date Smoking Tobacco: Never Smokeless Tobacco: Never Tobacco Cessation:Counseling Given: Not Answered Alcohol Use Standard Drinks/Week Comments Yes 7 [...] on file Sexual Orientation Not on file Last Filed Vital Signs Vital Sign Reading Time Taken Comments Blood Pressure 130/70 03/03/2023 1:01 PM EDT Pulse 72 03/03/2023 1:01 PM EDT Temperature 37.2 ??C (99 ??F) 03/03/2023 12:47 PM EDT Respiratory Rate 17 03/03/2023 1:01 PM EDT Oxygen Saturation 99% 03/03/2023 1:01 PM EDT Inhaled Oxygen Concentration - - Weight 62.1 kg (137 lb) 03/03/2023 11:22 AM EDT Height 157.5 cm (5' 2 ) 03/03/2023 11:22 AM EDT Body Mass Index 25.06 03/03/2023 11:22 AM EDT Plan of Treatment Health Maintenance Due Date Last Done Comments HEPATITIS B SCREENING 1979 COLOGUARD 2006 FIT TEST 2006 FOBT 2006 SIGMOIDOSCOPY 2006 VIRTUAL COLONOSCOPY 2006 PNEUMOCOCCAL VACCINES (50+ years) (1 of 1 - PCV) 2011 ZOSTER VACCINES (1 of 2) 2011 PAP SMEAR 11/10/2017 11/10/2014 Adult Td,Tdap Booster 07/04/2019 07/04/2009 DEPRESSION SCREENING 07/23/2023 07/23/2022 POTASSIUM LEVEL 07/26/2023 07/26/2022, 04/20/2021 COVID-19 VACCINE ( season) 2024 08/05/2022, 04/19/2022, 08/20/2021, Additional history exists SCREENING FOR DIABETES 07/26/2025 07/26/2022, 2020 MAMMOGRAM 09/17/2026 09/17/2024, 07/30, 08/14/2022, Additional history exists LIPID PANEL 07/26/2027 07/26/2022, 03/2021, 07/05/2021, Additional history exists COLONOSCOPY 03/03/2033 03/03/2023, 10/19/2012 COLORECTAL CANCER SCREENING 03/03/2033 RSV VACCINE (1 - 1-dose 75+ series) 2036 HEPATITIS C SCREENING Completed 07/26/2022 HIV ONE-TIME SCREENING (18-65 YEARS) Completed 07/26/2022 INFLUENZA VACCINE Completed 08/19/2024, , 07/29/2022, Additional history exists SMOKING STATUS SCREENING (Once After 26 Yrs) Completed 09/17/2024 HEPATITIS A VACCINES Aged Out No long er eligible based on patient's age to complete this topic HEPATITIS B VACCINES Aged Out No long er eligible based on patient's age to complete this topic HIB VACCINES Aged Out No longer eligi ble based on patient's age to complete this topic MENINGOCOCCAL VACCINES (ACWY) Aged Out No longer eligible based on patient's age to complete this topic Medical Devices Not on file Procedures Procedure Name Priority Date/Time Associated Diagnosis Comments BI MAMMOGRAM SCREENING WITH TOMOSYNTHESIS WITH CAD (BILATERAL) Routine 09/17/2024 10:49 AM EST Breast screening ENDOSCOPY, COLON 03/03/2023 12:1 8 PM EDT LIPID PANEL Routine 07/26/2022 9:01 AM EDT Routine general medical examination at a health care facility HEPATITIS C ANTIBODY, QUALITATIVE Routine 07/26/2022 9:01 AM EDT Need for hepatitis C screening test COMPREHENSIVE METABOLIC PANEL Routine 07/26/2022 9:01 AM EDT Malaise and fatigue OUTSIDE GLUCOSE FASTING Routine 04/20/2021 from Last 3 Months or Most Recently Relevant to Health Maintenance Results * BI MAMMOGRAM SCREENING WITH TOMOSYNTHESIS [...] recommendations. Chau Godwin MD IMG MG EXAMS * ENDOSCOPY, COLON (03/03/2023 12:18 PM EDT) Narrative Michael Schmidt, Joselito, MD - 03/03/2023 12:18 PM EDT [facility] Patient Name: Rosa Dyevirgil Attending MD:: JOSELITO SCHMIDT MD, , Procedure Date: 03/03/2023 12:18 PM Date of : 1960 Age: 62 Admit Type: Outpatient Gender: Female Room: [place] [address] Referring MD: DIDI SIFUENTES Exam Type: Colonoscopy Indications: Screening for colorectal malignant neoplasm Medications: Monitored Anesthesia Care Procedure: Informed consent was obtained from the patientafter discussion of the indications, limitations, alternatives, benefits, and risks of the procedure. Risks specifically discussed include but are not limited to medication reactions, missed lesions, bleeding, perforation, or the need for emergent surgery. Throughout the procedure, the patient's blood pressure, pulse, end-tidal CO2, and oxygensaturations were monitored continuously. The Olympus pediatric variable colonoscopePCF-[id number] #3 was introduced through the anus and advanced tothe cecum, identified by appendiceal orifice andileocecal valve. The colonoscopy was performed without difficulty. The patient tolerated the procedurewell. The quality of the bowel preparation was excellent. The quality of the bowel preparation was evaluated using the BBPS ([place]incoln Bowel Preparation Scale)with scores of: Right Colon = 3, Transverse Colon = 3and Left Colon = 3 (entire mucosa seen well with no residual staining, small fragments of stool oropaque liquid). The total BBPS score equals 9. Anatomical landmarks were photographed. Complications: No immediate complications. Estimated blood loss:None. Findings: The perianal and digital rectal examinations were normal. Internal hemorrhoids were found duringretroflexion. The hemorrhoids were mild. The exam was otherwise normal throughout theexamined colon. Impression: - Internal hemorrhoids. - No specimens collected. Recommendation: - Discharge patient to home. - Repeat colonoscopy in 10 years for screening purposes. JOSELITO SCHMIDT MD, 03/03/2023 12:46:24 PM This report has been signed electronically. Number of Addenda: 0 Note Initiated On: 03/03/2023 12:18 PM Procedure Code(s): --- Professional --- 07247, Colonoscopy, flexible; diagnostic, including collection of specimen(s) by brushing or washing, when performed (separateprocedure) --- Technical --- 33664, Colonoscopy, flexible; diagnostic, including collection of specimen(s) by brushing or washing, when performed (separateprocedure) Diagnosis Code(s): --- Professional --- Z12.11, Encounter for screening for malignantneoplasm of colon K64.8, Other hemorrhoids --- Technical --- Z12.11, Encounter for screening for malignantneoplasm of colon K64.8, Other hemorrhoids CPT copyright 2021 [employer]. All rights reserved. The codes documented in this report are preliminary and upon real estate associate attorney reviewmay be revised to meet current compliance requirements. Procedure Date: 03/03/2023 12:18:[address] [place] [address] Didi Sifuentes MD GI PROCEDURE ORDERAB LES * Comprehensive metabolic panel (07/26/2022 9:01 AM EDT) SODIUM 142 133 - 146 mmol/L [facility] POTASSIUM 4.1 3.3 - 5.1 mmol/L [facility] CHLORIDE 103 96 - 108 mmol/L [facility] CO2 27 21 - 35 mmol/L [facility] BUN 19 6 - 19 mg/dL [facility] CREATININE 0.70 0.5 - 1.5 mg/dL [facility] GLUCOSE 87 70 - 99 mg/dL [facility] ALBUMIN 4.4 3.9 - 4.8 g/dL [facility] TOTAL PROTEIN 7.2 6.5 - 8.0 g/dL [facility] CALCIUM 9.1 8.4 - 10.3 mg/dL [facility] ALKALINE PHOSPHATASE 60 39 - 117 U/L [facility] TOTAL BILIRUBIN 1.0 0.0 - 1.2 mg/dL [facility] AST 24 0 - 37 U/L [facility] ALT 19 0 - 40 U/L [facility] GLOBULIN 2.8 1 - 4.8 g/dL [facility] EGFR 98 >59 mL/min/1.7 3m2 [facility] Comment:Estimated glomerular filtration rate calculated using the CKD-EPI refit equation. ANION GAP 16 10 - 20 mmol/L [facility] Blood 07/26/2022 9:01 AM EDT 07/26/2022 9:04 AM EDT Didi Sifuentes MD LAB BLOOD ORDERABLES Performing Organization Address [facility]/ZIP Co de Phone Number [address] [address] * Hepatitis C antibody, qualitative (07/26/2022 9:01 AM EDT) HCV NON-REACTIV E NON-REACTI VE [facility] Blood 07/26/2022 9:01 AM EDT 07/26/2022 9:04 AM EDT Didi Sifuentes MD LAB BLOOD ORDERABLES Performing Organization Address [facility] Co de Phone Number [address] [address] * (ABNORMAL) Lipid panel (07/26/2022 9:01 AM EDT) HDL 102 mg/dL [facility] Comment: ? Interpretation <40 mg/dL: Low HDL cholesterol (major risk factor for CHD) Greater than or equal to 60 mg/dL: High HDL cholesterol ( negative risk factor for CHD) HDL - cholesterol is affected by a number of factors, e.g. smoking, excerise, hormones, sex and age. CHOLESTEROL 263(H) 0 - 240 mg/dL [facility] TRIGLYCERIDES 120 30 - 160 mg/dL [facility] LDL 137(H) 50 - 129 mg/dL [facility] Comment: LDL levels in terms of risk for coronary heart disease: <100 mg/dL: Optimal 100-129 mg/dL: Near or above optimal 130-159 mg/dL: Borderline high 160-189 mg/dL: High >190 mg/dL: Very High CARDIAC RISK RATIO 2.6(L) 3.3 - 4.4 C [facility] Blood 07/26/2022 9:01 AM EDT 07/26/2022 9:04 AM EDT Didi Sifuentes MD LAB BLOOD ORDERABLES [facility] [address] [place] [address] * Outside Glucose,Fasting (04/20/2021) Glucose, fasting - External 80 65 - 99 mg/dL Historical Provider LAB BLOOD ORDERAB LES from Last 3 Months or Most Recently Relevant to Health Maintenance Care Teams Outside Machinist Helper Relationship Specialty Start Date End Date Geeta Crane NP [address] [place] [address] [place] [phone] [email or web address] PCP - General Nurse Practitioner 09/17/24 Shay Stephens DO [address] [place] [address] Orthopedics & Sports Medicine, [facility] [place] [address] [email or web address] Historical LMR Provider 07/16/17 Additional Source Comments The information contained in this document represents components of the legal health record. It is not the complete legal health record.[facility]
--- OUTSIDE RECORDS SUMMARY | 2024-11-25 17:33 | XMS_ITS | Encounter Summary ---
Author Organization [facility] Address [phone] [facility] [place] [address] Care Team Providers Care Head Sugar Reprocess Operator Name Role Phone Shay Stephens DO Unavailable [phone] Linh Gong TALEND DEVELOPER Primary Care Provider Geeta Crane TALEND DEVELOPER Primary Care Provider Encounter Details Date Type Department Care Team (Late st Contact Info) Description 05/22/2023 Procedure Pass [facility] - [address] [place] [address] Social History Tobacco Use Types Packs/Day Years [...] documented as of this encounter Care Teams Head Sugar Reprocess Operator Relationship Specialty Start Date End Date Linh Gong NP [address] [facility] [address] [place] [address] PCP - General Nurse Practitioner 05/22/23 09/16/24 Geeta Crane NP [address] [place] [address] [place] [address] [email or web address] PCP - General Nurse Practitioner 09/17/24 Shay Stephens DO [address] [place] [address] Orthopedics & Sports Medicine, [place] [address] Historical LMR Provider 07/16/17 documented as of this encounter Additional Source Comments The information contained in this document represents components of the legal health record. It is not the complete legal health record.[facility]
--- OUTSIDE RECORDS SUMMARY | 2024-11-25 17:33 | XMS_ITS | Patient Health Record ---
Author Organization [facility] Address [address] [facility] [place] [address] Care Team Providers Care Production Leader Name Role Phone Didi Suarez MD Primary Care Provider Unavail able Black, Brinda Unavailable [phone] Allergies Allergen (clinical drug ingredient) Drug/Non Drug Allergy documented on EMR Reaction Allergy Type Onset Date Status ciprofloxacin Cipro rash Drug Allergy Act cara erythromycin Erythromycin rash Drug Allergy A ctive Latex Latex swelling Allergy Active Penicillin Unknown Drug Allergy Active Substance with sulfonamide structure and antibacterial mechanism of action (substance) Sulfa Antibiotics rash Drug Allergy Active Reason For Referral No Information Medications Medication SIG (Take, Route, Frequency, Duration) Notes Start Date End Date Status Sertraline HCl 25 MG 1 tablet Orally Onc e a day for 30 day(s) Active Vitamin D3 50 MCG (1999 UT) 1 tablet Orally Once a day Active Calcium 600 MG 1 tablet with meals Orally Twice a day for 30 day(s) Active Magnesium 100 MG 4 tablets with a liseth l Orally Once a day for 30 day(s) Active Probiotic Not-Taking Fiber Not-Taking Calcium Magnesium No t-Taking Phosphorus Supplement 280-160-250 MG 1 packet mixed with water or juice Orally Four times a day for 30 day(s) Not-Taking Potassium 99 MG 1 tablet Orally Once a day for 30 day(s) Not-Taking Medrol loretta 4mg as directed orally a s directed for 6 days 09/19/2021 Active Ultra Juan Active Spirulina Not-Taking Vitamin B6 50 MG 1 tablet Orally for 30 day(s) Active Sertraline HCl 25 MG 1 tablet Orally Onc e a day for 30 day(s) Not-Taking Multi Vitamin/Minerals - as directed Orally Not-Taking Phosphorous Not-Taki ng Prebiotic Product - as directed Orally Not-Taking Vitamin C 60 mg Active Vitamin D 12.5 MCG/0.25ML 0.25 ml Orally Once a day for 30 day(s) Active Prebiotic Product Ac tive Probiotic Active potassium Not-Taking Multivitamin Active Vitamin D3 50 MCG (2000 UT) 1 capsule Orally Once a day for 30 day(s) Not-Taking Spirulina Active Vitamin D Not-Taking Fiber Active Vitamin C Not-Taking Immunizations Vaccine Route Administration Date Status Comme nts COVID-19 [employer] Unknown 08/13/2021 Administered 1st dose: Social History Tobacco Use: Social History Observation Description Date Details (start date - stop date) Never Smoker NA - NA Tobacco Use/Smoking Question Answer Notes Are you a: nonsmoker Additional Findings: Tobacco Non-User Current no n-smoker Alcohol Screen Question Answer Notes Did you have a drink contain ing alcohol in the past year? Yes How often did you have a dri nk containing alcohol in the past year? 4 or more times a week (4 points) Points 4 Interpretation Positive Tobacco use other than smoking: Question Answer Notes Are you an other tobacco user? No Problems No Known Problems Plan Of Treatment No Information Insurance Providers Payer Name Payer Address Payer Phone Subscriber Number Group Number Insured Name Patient Relationship to Insured Coverage Start Date Coverage End Date [facility] [address] [place] [address] [id number] Rosa Loza Self - patient is the insured Medical (General) History Medical History History ICD Code Anxiety Arthritis Back,Hip,and Knee pain Broken bones CAD (Cholesterol) Headaches/Migraines Heart disease [place] Syndrome Liver disease Osteoporosis Osteopenia Eczema chronic sinusitis Chicken pox Hyperparathyroidism Hyperthyroidism Vitamin D deficiency Warts, vaginal Pneumonia Menopause Uterine fibroids Ovarian cysts Mononucleosis Tinnitus Calcific tendonitis/bursitis Cervicalgia Clavical fx, left TMJ Uterine polyps Surgical History Surgery Date(Month/Year) carpal tunnel surgery, right 2014 trigger finger release, left 2017, 2019 rotator cuff, left 2017 elbow pin after dislocation, left 1974 carpel tunnel surgery, left 2017 hyperparathyroid 2020
--- OUTSIDE RECORDS SUMMARY | 2024-11-25 17:33 | XMS_ITS | Encounter Summary ---
Author Organization [facility] Address [phone] [facility] [place] [address] Care Team Providers Care Cat Wagon Operator Name Role Phone Kat Shay Harika BUI Unavailable Kavita Schneider PA-C Unavailable Trell Vásquez MD Unavailable [phone] Unavailable [email or web address] Cameron Dutton Unavailable [phone] Didi Suarez MD Primary Care Provider Linh Gong SALES SERVICE REP Primary Care Provider Geeta Crane SALES SERVICE REP Primary Care Provider Encounter Details Date Type Department Care Team (Late st Contact Info) Description 04/05/2019 Ancillary Orders Virtual Department [address] [place] [address] Didi Suarez MD [address] [place] [address] Breast screening Social History Tobacco Use Types [...] MAMMOGRAM SCREENING WITH TOMOSYNTHESIS WITH CAD (BILATERAL) (06/28/2019 8:19 AM EDT) Anatomical Region Laterality Modality Breast Left, Breast Right, Breast Bilateral Bila teral Mammography 06/28/2019 9:30 AM EDT Impressions 06/28/2019 9:31 AM EDT RIGHT breast: No mammographic evidence of malignancy. LEFT breast: No mammographic evidence of malignancy. RECOMMENDED FOLLOWUP: ??Routine screening mammography is recommended, as clinically appropriate. The results will be sent by mail to the patient. BI-RADS CATEGORY: 1 - Negative. BREAST COMPOSITION: The breast tissue is heterogeneously dense, an appearance which lowers the sensitivity of mammography. ?? POS - CDHMAMA Narrative 06/28/2019 9:31 AM EDT EXAM: BI MAMMOGRAM SCREENING WITH TOMOSYNTHESIS WITH CAD (BILATERAL) HISTORY: Screening. * Annual Breast screening COMPARISON: Prior mammograms, most recent 06/26/2018 and dating back to 05/07/2013. TECHNIQUE: Digital breast tomosynthesis was performed in CC and MLO projections. Reconstructed 2-D C-views generated from the tomosynthesis images. Images interpreted in conjunction with R-2 Image Corner Trimmer Operator computer-aided detection (CAD). FINDINGS: BREAST COMPOSITION: The breasts are heterogeneously dense, which may obscure small masses. RIGHT breast: There are no suspicious masses, suspicious areas of architectural distortion or suspicious clusters of microcalcifications. LEFT breast: There are no suspicious masses, suspicious areas of architectural distortion or suspicious clusters of microcalcifications. ? Procedure Note Adry Dale MD - 06/28/2019 EXAM: BI MAMMOGRAM SCREENING WITH TOMOSYNTHESIS WITH CAD (BILATERAL) HISTORY: Screening. * Annual Breast screening COMPARISON: Prior mammograms, most recent 06/26/2018 and dating back to05/07/2013. TECHNIQUE: Digital breast tomosynthesis was performed in CC and MLOprojections. Reconstructed 2-D C-views generated from the tomosynthesisimages. Images interpreted in conjunction with R-2 Image Checkercomputer-aided detection (CAD). FINDINGS: BREAST COMPOSITION: The breasts are heterogeneously dense, which mayobscure small masses. RIGHT breast: There are no suspicious masses, suspicious areas ofarchitectural distortion or suspicious clusters of microcalcifications. LEFT breast: There are no suspicious masses, suspicious areas ofarchitectural distortion or suspicious clusters of microcalcifications. IMPRESSION: RIGHT breast: No mammographic evidence of malignancy. LEFT breast: No mammographic evidence of malignancy. RECOMMENDED FOLLOWUP: Routine screening mammography is recommended, asclinically appropriate. The results will be sent by mail to the patient. BI-RADS CATEGORY: 1 - Negative. BREAST COMPOSITION: The breast tissue is heterogeneously dense, anappearance which lowers the sensitivity of mammography. POS - CDHMAMA Didi Suarez MD IMG MG EXAMS documented in this encounter Visit Diagnoses Diagnosis Breast screening Breast screening, unspecified Breast screening Breast screening, unspecified documented in this encounter Care Teams Cat Wagon Operator Relationship Specialty Start Date End Date Didi Suarez MD [address] [place] [address] [email or web address] PCP - General Internal Medicine 03/11/18 05/21/23 Linh Gong NP [address] [address] PCP - General Nurse Practitioner 05/22/23 09/16/24 Geeta Crane NP [address] [place] [address] [place] [address] [email or web address] PCP - General Nurse Practitioner 09/17/24 hSay Stephens DO [address] [place] [address] Orthopedics & Sports Medicine, [facility] [place] [address] Historical LMR Provider 07/16/17 Kavita Schneider PA-C [address] [place] [address] Orthopedics & Sports Medicine, [place] [address] Historical LMR Provider 07/16/17 10/06/21 Trell Vásquez MD [address] [facility], [address] [place] [address] Historical LMR Provider 07/16/17 10/06/21 Doris Martin, JAMALCS Historical LMR Provider 07/16/17 10/06/21 Cameron Dutton PA [address] [place] [address] Historical LMR Provider 07/16/17 2 documented as of this encounter Additional Source Comments The information contained in this document represents components of the legal health record. It is not the complete legal health record.[facility]
--- OUTSIDE RECORDS SUMMARY | 2024-11-25 17:33 | XMS_ITS | Encounter Summary ---
Author Organization [facility] Address [phone] [facility] [place] [address] Care Team Providers Care Spoon Maker Name Role Phone ClackamasShay DO Unavailable [phone] Kavita Schneider PA-C Unavailable [phone] Trell Vásquez MD Unavailable [phone] Doris Martin RDCS Unavailable [email or web address] Cameron Dutton Unavailable [phone] Didi Suarez MD Primary Care Provider [phone] Linh Gong LEAVE MANAGER Primary Care Provider Geeta Crane LEAVE MANAGER Primary Care Provider Encounter Details Date Type Department Care Team (Late st Contact Info) Description 11/03/2018 Procedure Pass [address] [place] [address] Social History Tobacco Use Types Packs/Day Years [...] on filedocumented in this encounter Care Teams Spoon Maker Relationship Specialty Start Date End Date Didi Suarez MD [address] [place] [address] [address] [place] [address] [email or web address] PCP - General Internal Medicine 03/11/18 05/21/23 Linh Gong, LEAVE MANAGER [address] [address] PCP - General Nurse Practitioner 05/22/23 09/16/24 Geeta Crane, BAUDILIO [address] [place] [address] [place] [id number] [email or web address] PCP - General Nurse Practitioner 09/17/24 Shay Stephens DO [address] [place] [address] [facility], [place] [address] [email or web address] Historical LMR Provider 07/16/17 Kavita Schneider PA-C [facility], [place] [address] [email or web address] Historical LMR Provider 07/16/17 10/06/21 Trell Vásquez MD [address] [facility] [address] [place] [address] Historical LMR Provider 07/16/17 10/06/21 Doris Martin RDCS Historical LMR Provider 07/16/17 10/06/21 Cameron Dutton PA [address] [place] [address] [id number] Historical LMR Provider 07/16/17 2 documented as of this encounter Additional Source Comments The information contained in this document represents components of the legal health record. It is not the complete legal health record.[facility]
== END 2024-11-25 15:08 | disposition home or self-care (01) ==
PROVIDERS: PCP Internal Medicine; Visit Provider Psychiatry & Neurology Neurology
DX: G47.62 Sleep related leg cramps (principal)
CPT/HCPCS: 99204

== ENCOUNTER 2025-03-02 11:23 | Outpatient (AMB) | payer OTHER, SELFPAY ==
[2025-03-02 11:39] VITALS: BP 120/72; PULSE 61; O2SAT 99; BMI 25.4
--- NOTE | 2025-03-02 11:39 | MHC.OFFVIS ---
Vital Signs 03/02/25 11:39 Height 5 ft 2 in Weight 139 lb 2 oz BMI 25.4 BP 120/72 Blood Pressure Location Rt brachial Position Sitting Pulse 61 Pulse Source Pulse Oximeter Pulse Oximetry (%) 99 Oxygen Delivery Method Room Air Intake Visit Reasons: follow up Bilateral Leg Cramps Intake Note: Patient presents follow up Bilat leg cramp medication. Labs in chart. Allergies erythromycin base Allergy (Severe, Verified 03/02/25 11:52) rash sulfamethoxazole [From Bactrim] Allergy (Severe, Verified 03/02/25 11:52) Rash trimethoprim [From Bactrim] Allergy (Severe, Verified 03/02/25 11:52) Rash Penicillins Allergy (Mild, Verified 03/02/25 11:52) gi upset HPI Comments Details: 64y/o right handed female comes for evaluation of bilateral nocturnal leg cramps. She goes to bed at 10pm and gets up 2 days a week for Jazzercise at 5am, however her regular morning wake schedule is at 7am. She has cramps intermittently for over 10 years but for the past 6 months the cramps increased in frequency and intensity. It is usually when she is resting or sleeping, worse in the latter part of the day. Getting up,stretching and walking helps. Now she has some symptoms during daytime too. The cramps are bilaterally in calves, sometimes hamstrings, with numbness and tingling, her feet cramp and curl due to painful spasms at night waking her up from sleep at least 3-5x a night. She also notices numbness and tingling in her left lateral thigh, and remembers she did have sciatica many years ago. It has decreased in intensity now. She has neck pain, but manages with massages, ice and cold packs but no back pain. She denies nocturia, headaches, mood irritability. Her mother had leg cramps. She denies snoring, is fatigued and recently due to the RLS symptoms, she can have up to 5 days consecutively with fragmented sleep. She had sleep study 15 years ago. She declines a sleep study today but will consider it for future date. [facility] Medical History Nocturnal leg cramps Elbow dislocation Carpal tunnel syndrome Osteoporosis Surgical History S/P trigger finger release H/O parathyroidectomy History of tonsillectomy and adenoidectomy History of rotator cuff surgery Family History Father CAD (coronary artery disease) Type 2 diabetes mellitus Mother Pancreatic cancer Type 2 diabetes mellitus Sister Type 2 diabetes mellitus Ovarian carcinoma Social History Alcohol intake: current Comment: 1 glass of wine Patient Tobacco Use Status: Never used Tobacco Physical Exam Vital Signs: Last Vital Signs Pulse 61 03/02/25 11:39 BP 120/72 03/02/25 11:39 Pulse Ox 99 03/02/25 11:39 Oxygen Delivery Method Room Air 03/02/25 11:39 BMI result Body Mass Index 25.4 Const General: cooperative, comfortable and no acute distress Nutritional Appearance: average body habitus Orientation/consciousness: patient oriented x3 HEENT Face and sinus: Yes face symmetric Teeth and gingiva: other ([place] score is 3) Eyes Pupils: Equal, round and reactive pupils present Resp Effort & Inspection: normal respiratory effort and able to speak in complete sentences Neuro General: patient oriented x3 and moves all extremities Cranial nerves: Yes Equal, round and reactive pupils present, Yes Normal accommodation reflex present, Yes Normal facial strength present, Yes Midline tongue present, Yes Ability to bilaterally rotate head present and Yes Ability to bilaterally elevate shoulders present Gait exam (Neuro): Normal gait present Motor exam (neuro): 5/5 motor strength present throughout and Normal motor muscle tone present throughout Deep tendon reflexes (DTR's): Right triceps reflex intensity grade: 2+, Left triceps reflex intensity grade: 2+, Rt Biceps (C5, C6): 2+, Left biceps reflex intensity grade: 2+, Right brachioradialis reflex intensity grade: 2+, Left brachioradialis reflex intensity grade: 2+, Right patellar reflex intensity grade: 2+, Left patellar reflex intensity grade: 2+, Right ankle reflex intensity grade: 2+ and Left ankle reflex intensity grade: 2+ Coordination: [id number] test normal Psych Appearance: grossly normal Affect: normal affect Thought process: Normal thought process present Results Reviewed Results Reviewed: B12 is elevated. Assessment & Plan Assessment & Plan (1) Nocturnal leg cramps: Comment: ? periodic limb movements Code(s): G47.62 - Sleep related leg cramps Category: Medical (2) RLS (restless legs syndrome): Code(s): G25.81 - Restless legs syndrome Category: Medical Plan RLS? PLMD? declined HST/ PSG today, will consider it at a future date. Labs reviewed with pt ferritin level is 101, b12 is elevated 1188, magnesium is nml and she is taking magnesium 250mg po daily. RLS she said gabapentin 100mg qhs, however made her feel sedated so she only takes it in a dire need. May apply Magnilife topically. Numbness and tingling of bilateral feet, will start alpha-lipoic acid orally 200mg po daily otc. NCS/ EMG bilateral leg cramps/ Orders: Orders NE electromyogram (EMG) 03/02/25 G25.81 - Restless legs syndrome, G47.62 - Sleep related leg cramps NE nerve conduction velocity 03/02/25 G25.81 - Restless legs syndrome, G47.62 - Sleep related leg cramps Patient Instructions: Sleep Hygiene provided: set a scheduled bedtime and wake time to help regulate the circadian rhythm and balance the release of pituitary hormones. Sleep in a dark room, temperatures below 68 degrees, and no devices n bed. Limit caffeinated products 6 hours prior to bed, and limit fluids 2-4 hours prior to bed. Gentle night yoga, diffusing essential oils, and playing soft music can be relaxing. Managing RLS Coding Level of Care Code Est Pt Level 4 (06771) Diagnoses Nocturnal leg cramps G47.62 RLS (restless legs syndrome) G25.81 Time Spent (min) 30 Comment evaluation of RLS Sleep Questionnaire Difficulty falling asleep: No Difficulty staying asleep?: Yes Number of arousals: up to 5 Snoring: Yes Witnessed apneas: No Gasping arousals: No Nocturia: No GERD: No Vivid dreams: Yes Acting out dreams: No Abnormal behavior in sleep: No Abnormal movements in sleep: No Morning headaches: No Excessive daytime sleepiness: No Daytime naps: No Restless legs: Yes Hallucinations: No Sleep paralysis: No Drop attacks: No Sleep Study: Yes (>15 years ago) CPAP: No
--- OUTSIDE RECORDS SUMMARY | 2025-03-02 12:20 | XMS_ITS | Clinical Summary ---
Author Organization [facility] Address [address] [place] [address] Care Team Providers Care Senior Mortgage Loan Processor Name Role Phone Unknown, Primary Care Provider [...] 5 season) 2024 08/13/2021, 12/16/2020 Influenza Vaccine (Season Ended) 2025 07/29/2022, 10/09/2021, 08/16/2020 RSV Adult > 60+ Yrs [...] age to complete this topic Care Teams Senior Mortgage Loan Processor Relationship Specialty Start Date End Date Unknown, PCP - General 09/03/23
== END 2025-03-02 12:57 | disposition home or self-care (01) ==
LOC: HO.HSMS 11:23
PROVIDERS: PCP Internal Medicine; Visit Provider Physician Assistant Medical
DX: G47.62 Sleep related leg cramps (principal); G25.81 Restless legs syndrome
CPT/HCPCS: 99214

== ENCOUNTER 2025-05-04 09:17 | Outpatient (REF) | payer OTHER, SELFPAY ==
--- NOTE | 2025-05-04 09:20 | EMG_ITS ---
Chief complaint: Bilateral calf cramps. Nondiabetic. Reason for referral: Evaluate for neuropathy or myopathy Referred by: Francisco Javier JAEGER Procedure done: Bilateral lower extremity NCS/EMG Precautions and/or limitations: None The limb temperature was monitored continuously and remained between 32-36 degrees C during the performance of the NCS. Nerve Conduction Studies Anti Sensory Summary Table ?Stim Site NR Onset (ms) Norm Onset (ms) Peak (ms) Norm Peak (ms) O-P Amp (?V) Norm O-P Amp Site1 Site2 Delta-0 (ms) Dist (cm) Vance (m/s) Norm Vance (m/s) Right Sup Peron Anti Sensory (Ankle) Lateral Leg ? 1.4 1.8 <4.4 4.7 >5.0 Lateral Leg Ankle 1.4 14.0 100 Left Sural Anti Sensory (Lat Mall) Calf ? 2.8 3.4 <4.0 16.1 >5.0 Calf Lat Mall 2.8 14.0 50 Right Sural Anti Sensory (Lat Mall) Calf ? 2.9 3.6 <4.0 11.4 >5.0 Calf Lat Mall 2.9 14.0 48 Motor Summary Table ?Stim Site NR Onset (ms) Norm Onset (ms) O-P Amp (mV) Norm O-P Amp iAmp (mV) Amp (1st) (%) Site1 Site2 Delta-0 (ms) Dist (cm) Vance (m/s) Norm Vance (m/s) Left Peroneal Motor (Ext Dig Brev) Ankle ? 3.9 <4.0 5.4 >2.5 7.0 100.0 Ankle Ext Dig Brev 3.9 0.0 B Fib ? 9.1 4.4 5.5 81.5 B Fib Ankle 5.2 29.0 56 >40 Poplt ? 9.9 4.1 5.1 75.9 Poplt B Fib 0.8 5.0 62 >40 Right Peroneal Motor (Ext Dig Brev) Ankle ? 4.5 <4.0 5.0 >2.5 6.2 100.0 Ankle Ext Dig Brev 4.5 0.0 B Fib ? 9.5 5.1 6.1 102.0 B Fib Ankle 5.0 26.5 53 >40 Poplt ? 10.3 5.0 6.0 100.0 Poplt B Fib 0.8 5.0 62 >40 Right Peroneal TA Motor (Tib Ant) Fib Head ? 3.2 <4.2 6.9 9.3 100.0 Fib Head Tib Ant 3.2 0.0 Poplit ? 3.6 <5.7 7.2 9.9 104.3 Poplit Fib Head 0.4 5.0 125 >40.5 Left Tibial Motor (Abd Larsen Brev) Ankle ? 3.6 <5 13.2 >2.5 17.8 100.0 Ankle Abd Larsen Brev 3.6 0.0 Knee ? 9.7 10.3 14.3 78.0 Knee Ankle 6.1 34.0 56 >40 Right Tibial Motor (Abd Larsen Brev) Ankle ? 3.7 <5 12.8 >2.5 16.4 100.0 Ankle Abd Larsen Brev 3.7 0.0 Knee ? 9.5 10.1 13.5 78.9 Knee Ankle 5.8 35.0 60 >40 EMG ?Side Muscle Nerve Root Ins Act Fibs Psw Amp Dur Poly Recrt Int Pat Comment Right AbdHallucis MedPlantar S1-2 Nml Nml Nml Nml Nml 0 Nml Complete Right AntTibialis Dp Br Peron L4-5 Nml Nml Nml Nml Nml 0 Nml Complete Right PostTibialis Tibial L5, S1 Nml Nml Nml Nml Nml 0 Nml Complete Right MedGastroc Tibial S1-2 Nml Nml Nml Nml Nml 0 Nml Complete Right VastusMed Femoral L2-4 Nml Nml Nml Nml Nml 0 Nml Complete Left AbdHallucis MedPlantar S1-2 Nml Nml Nml Nml Nml 0 Nml Complete Left AntTibialis Dp Br Peron L4-5 Nml Nml Nml Nml Nml 0 Nml Complete Left PostTibialis Tibial L5, S1 Nml Nml Nml Nml Nml 0 Nml Complete Left MedGastroc Tibial S1-2 Nml Nml Nml Nml Nml 0 Nml Complete Left VastusMed Femoral L2-4 Nml Nml Nml Nml Nml 0 Nml Complete Paraspinal EMG ?Side Muscle Nerve Root Ins Act Fibs Psw Comment Right Lumbar Upper Rami Nml Nml Nml Right Lumbar Mid Rami Nml Nml Nml Right Lumbar Lower Rami Nml Nml Nml Left Lumbar Upper Rami Nml Nml Nml Left Lumbar Mid Rami Nml Nml Nml Left Lumbar Lower Rami Nml Nml Nml FINDINGS: Right peroneal nerve showed prolonged distal latency, normal amplitude and normal conduction velocity. Right superficial peroneal sensory nerve showed small amplitude but normal peak latencies. All other nerves tested were within normal. Concentric needle EMG was performed in selected muscles of the bilateral lower extremity and lumbar paraspinals. Study did not reveal signs of electric abnormalities as shown in the table above. IMPRESSION: 1. This is an abnormal study. 2. 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 3. There is no electrodiagnostic evidence for tibial neuropathy, lumbosacral plexopathy, lumbar radiculopathy, or peripheral neuropathy. 4. There is no electrodiagnostic evidence for peroneal neuropathy on left. Thank you for your kind referral. Ivy Ronquillo MD, SAMARA Board Certified, [place] Board of Physical Medicine and Rehabilitation (ABPMR) Board Certified, [place] Board of Electrodiagnostic Medicine (ABEM) CODIN 94480 x 2 MTDD
--- OUTSIDE RECORDS SUMMARY | 2025-05-04 09:37 | XMS_ITS | Clinical Summary ---
Author Organization [facility] Address [address] [place] [phone] Phone Care Team Providers Care Fuel Cell Assembler Name Role Phone Chau Godwin MD Primary Care Provider [phone] Allergies Active Allergy Reactions Criticality Noted Date Comments Cephalosporins 06/27/2016 Penicillin G 06/27/2016 Sulfa (Sulfonamide Antibiotics) 05/31 Sulfamethoxazole-Trimethoprim 2015 Medications multivitamin (MULTIPLE VITAMINS ORAL) Take by mouth. Active CHOLECALCIFEROL, VITAMIN D3, ORAL Take by mouth. 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 Immunizations Name Administration Dates Next Due Micromuscle/fl3ur SARS-CoV-2 COVID -19, vector-nr, rS-Ad26, preservative free 12/16/2020 Surgical History Surgery Date Site/Laterality Comments OTHER SURGICAL HISTORY PROCEDURE: DE DILATION & CURETTAGE DX&/THER NONOBSTETRIC OTHER SURGICAL HISTORY PROCEDURE: HYSTEROSCOPY, DIAGNOSTIC GYNECOLOGIC CRYOSURGERY CONDYLOMA EXCISION/FULGURATION Medical History Medical History Date Comments Fibroids DX:Fibroids; COM MENT: 2.5cm fundal by 2016 sono Hypothyroidism DX:Hypothyroidis m IUD (intrauterine device) in place February 2014 DX:IUD (intrauterine device) in place Abnormal Pap smear of cervix CTS (carpal tunnel syndrome) Urinary tract infection Family History Medical History Relation Name Comments Breast cancer Aunt Diabetes Father Angel Bryant Heart disease Father Angel Bryant Hypertension Father Angel Bryant Stroke Father Angel Bryant Diabetes Maternal Grandmother Marsha Jara Diabetes Mother Meri Bryant Hyperlipidemia Mother Meri Bryant Pancreatic cancer Mother Meri Bryant Breast cancer Mother's Sister Evie Melgoza Diabetes Sister Aidee Bryant Ovarian cancer Sister Aidee Bryant Ovary Stroke Sister Aidee Bryant Colon cancer Neg Hx Prostate cancer Neg Hx Uterine cancer Neg Hx Relation Name Status Comments Aunt Father Angel Bryant Maternal Grandmother Marsha Jara Mother Meri Bryant Pancreatic CA, DM Mother's Sister Evie Melgoza Sister Aidee Bryant Social History Tobacco Use Types Packs/Day Years Used Date Smoking Tobacco: Never Smokeless Tobacco: Never Tobacco Cessation:Counseling Given: Not Answered Alcohol Use Standard Drinks/Week Comments Yes 7 (1 standard drink = 0.6 oz pur e alcohol) Housing Instability Answer Date Recorde d Are you worried that in the next 2 months you may not have stable housing? No 12/13/2024 Food Access & Nutrition Answer Date Rec orded Do you have access to a vari ety of food including fruits and vegetables? Yes 12/13/2024 Access to Healthcare Answer Date Record ed Within the last 3 months, ho w many times did you visit the emergency department for your medical care? 0 12/13/2024 Health Literacy Answer Date Recorded How often do you need to hav e someone help you when you read instructions, pamphlets, or other written material from your doctor or pharmacy? Never 12/13/2024 Caregiver: How often do you need to have someone help you when you read instructions, pamphlets, or other written material from your doctor or pharmacy? Not on file 12/13/2024 Financial Risk Answer Date Recorded How hard is it for you to pa y for the very basics like food, housing, medical care, and air conditioning / heating? Not very hard 12/13/2024 Transportation Answer Date Recorded Has the lack of transportati on kept you from meetings, work, or from getting things needed for daily living? No Has the lack of transportati on kept you from medical appointments or from getting medications? No 12/13/2024 Social Isolation Answer Date Recorded How often do you feel lonely or isolated from th ose around you? Never 12/13/2024 Food Risk Answer Date Recorded Within the past 12 months we worried whether our food would run out before we got money to buy more. Never true 12/13/2024 Within the past 12 months th e food we bought just didn't last and we didn't have money to get more. Never true 12/13/2024 Dependent Care Answer Date Recorded Do you need help finding or paying for care for your loved ones. For example, child care leader or elderly care for an older adult? No 12/13/2024 Education Answer Date Recorded Do you think completing more education or training, like finishing a GED, going to college, or learning a trade, would be helpful for you? No 12/13/2024 Employment and Income Answer Date Recor ded During the last four weeks, have you been actively looking for work? No 12/13/2024 Living Situation Answer Date Recorded What is your living situation? 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 Not on file Not on file Not on fi le Obstetrics History Para Term AB IAB SAB Ectopic Multiple Livin g Live Births 0 0 0 0 0 0 0 0 0 0 0 Last Filed Vital Signs Vital Sign Reading Time Taken Comments Blood Pressure 134/72 12/14/2024 8:45 AM EDT Pulse 62 12/14/2024 8:45 AM EDT Temperature - - Respiratory Rate - - Oxygen Saturation - - Inhaled Oxygen Concentration - - Weight 64 kg (141 lb) 12/14/2024 8:45 AM EDT Height 157.5 cm (5' 2 ) 12/14/2024 8:45 AM EDT Body Mass Index 25.79 12/14/2024 8:45 AM EDT Plan of Treatment Health Maintenance Due Date Last Done Comments Pneumococcal Vaccine: 50+ Years (1 of 1 - PCV) 2011 Zoster Vaccines (1 of 2) 2011 Colorectal Cancer Screening: Colonoscopy 09/07/2022 HIV Screening 09/07/2022 Osteoporosis Screening (Bone Density Screening) 09/07/2022 Influenza Vaccine (#1) 2025 , 07/28/2023, 07/29/2022, Additional history exists Social Influencers of Health Screening 12/13/2025 12/13/2024 Breast Cancer Screening 09/17/2026 09/17/2024 Cholesterol Screening (Lipid Panel) 07/26/2027 07/26/2022 Cervical Cancer Screening: HPV 12/14/2027 12/13/2022 DTaP,Tdap,and Td Vaccines (3 - Td or Tdap) 09/07/2034 09/07/2024, 07/04/2009 RSV Immunization Adult Patients (1 - 1-dose 75+ series) 2036 Hepatitis C Screening Completed 07/26/2022 COVID-19 Vaccine Completed 08/19/2024, 03/2022, 04/19/2022, Additional history exists Depression Screening Completed 12/13/2024 HIB Vaccines Aged Out No longer eligi [...] age to complete this topic Meningococcal B Vaccine Aged Out No l onger eligible based on patient's age to complete this topic RSV Immunization Patients Under 20 months Aged Out No longer eligible based on [...] Cancer Screening: HPV negative, abstracted Historical Provider HEALTH MAINTENANCE Final Result from Last 3 Months or Most Recently Relevant to Health Maintenance Insurance [facility] Care Teams Fuel Cell Assembler Relationship Specialty Start Date End Date Chau Godwin MD [address] [place] [phone] PCP - General Internal Medicine 12/14/24
--- OUTSIDE RECORDS SUMMARY | 2025-05-04 09:37 | XMS_ITS | Encounter Summary ---
Author Organization [facility] Address [address] [place] [address] Phone Care Team Providers Care Project Superintendent Name Role Phone Shay Stephens DO Unavailable [phone] Linh Gong MATHEMATICS ACADEMIC CHAIR Primary Care Provider Geeta Crane MATHEMATICS ACADEMIC CHAIR Primary Care Provider Encounter Details Date Type Department Care Team (Late st Contact Info) Description 05/22/2023 Transcribe Orders Virtual Department [address] [place] [address] Linh Gong, BAUDILIO [address] [facility] [address] [place] [address] Breast screening (Primary Dx) Social History Tobacco [...] or tries to control you? No 03/03/2023 Comments No Sex and Gender Information Value Date Recorded Sex Assigned at Not on file Legal Sex Female 9:47 PM EDT Gender Identity Not on file Sexual Orientation [...] PM EST No mammographic signs of malignancy. Annual screening is recommended. BI-RADS CATEGORY: 1 - Negative. DENSITY: There are scattered fibroglandular densities. Narrative 08/15/2023 4:40 [...] There are scattered fibroglandular densities. Linh Gong MATHEMATICS ACADEMIC CHAIR IMG MG EXAMS Final Result documented in this encounter Visit Diagnoses Diagnosis Breast screening- Primary Breast screening, unspecified Breast screening Breast screening, unspecified documented in this encounter Additional Health Concerns Assessment Noted Time PHQ-2 Depression Total Score: 0 07/23/20 12:08 PM EDT documented as of this encounter Care Teams Project Superintendent Relationship Specialty Start Date End Date Linh Gong, BAUDILIO [address] [facility] [address] [place] [address] PCP - General Nurse Practitioner 05/22/23 09/16/24 Geeta Crane NP [address] [place] [address] [place] [id number] [email or web address] PCP - General Nurse Practitioner 09/17/24 Shay Stephens DO [address] [place] [address] Orthopedics & Sports Medicine, [place] [address] [email or web address] Historical LMR Provider 07/16/17 documented as of this encounter Additional Source Comments The information contained in this document represents components of the legal health record. It is not the complete legal health record.[facility]
--- OUTSIDE RECORDS SUMMARY | 2025-05-04 09:37 | XMS_ITS | Clinical Summary ---
Author Organization [facility] Address [address] [place] [address] Care Team Providers Care Windrower Operator Name Role Phone Unknown, Primary Care Provider [...] Td or Tdap) 07/04/2019 07/04/2009 COVID-19 Vaccine (3 2023-2 5 season) 2024 08/13/2021, 12/16/2020 Influenza Vaccine (#1) 2025 2, 10/09/2021, 08/16/2020 Pneumococcal Vaccine (1 of 1 - PCV) 2026 RSV Adult > 60+ Yrs or (1 [...] age to complete this topic Care Teams Windrower Operator Relationship Specialty Start Date End Date Unknown, PCP - General 09/03/23
--- OUTSIDE RECORDS SUMMARY | 2025-05-04 09:37 | XMS_ITS | Patient Health Record ---
Author Organization [facility] Address [address] [place] [address] Care Team Providers Care Job Service Consultant Name Role Phone Didi Suarez MD Primary Care Provider Unavail able Black, Brinda Unavailable [phone] Allergies Allergen (clinical drug ingredient) Drug/Non Drug [...] MG 1 tablet Orally Onc e a day; Duration: 30 day(s) Active Vitamin D3 50 MCG (1999 UT) 1 tablet Orally Once a day Active Calcium 600 MG 1 tablet with meals Orally Twice a day; Duration: 30 day(s) Active Magnesium 100 MG 4 tablets with a liseth l Orally Once a day; Duration: 30 day(s) Active Probiotic Not-Taking Fiber Not-Taking Calcium Magnesium No t-Taking Phosphorus Supplement 280-160-250 MG 1 packet mixed with water or juice Orally Four times a day; Duration: 30 day(s) Not-Taking Potassium 99 MG 1 tablet Orally Once a day; Duration: 30 day(s) Not-Taking Medrol loretta 4mg as directed orally a s directed; Duration: 6 days 09/19/2021 Active Ultra Juan Active Spirulina Not-Taking Vitamin B6 50 MG 1 tablet Orally; Duration: 30 day(s) Active Sertraline HCl 25 MG 1 tablet Orally Onc e a day; Duration: 30 day(s) Not-Taking Multi Vitamin/Minerals - as directed Orally Not-Taking Phosphorous Not-Taki ng Prebiotic Product - as directed Orally Not-Taking Vitamin C 60 mg Active Vitamin D 12.5 MCG/0.25ML 0.25 ml Orally Once a day; Duration: 30 day(s) Active Prebiotic Product Ac tive Probiotic Active potassium Not-Taking Multivitamin Active Vitamin D3 50 MCG (2000 UT) 1 capsule Orally Once a day; Duration: 30 day(s) Not-Taking Spirulina Active Vitamin D Not-Taking Fiber Active Vitamin C Not-Taking Immunizations Vaccine Route Administration Date Status Comme nts COVID-19 Fourteen IP & Fourteen IP/Dojo Unknown 08/13/2021 Administered 1st dose: Social History [...] Insured Coverage Start Date Coverage End Date [facility] [address] [place] [address] [id number] Rosa Loza Self - patient is the insured Medical (General) History Medical History History ICD Code Anxiety Arthritis Back,Hip,and Knee pain Broken bones CAD (Cholesterol) Headaches/Migraines Heart disease [place] Syndrome Liver disease Osteoporosis Osteopenia Eczema chronic sinusitis Chicken pox Hyperparathyroidism Hyperthyroidism Vitamin D deficiency Warts, vaginal Pneumonia Menopause Uterine fibroids Ovarian cysts Mononucleosis Tinnitus Calcific tendonitis/bursitis Cervicalgia Clavical fx, left TMJ Uterine polyps Surgical History Surgery Date(Month/Year) carpal tunnel surgery, right 2013 trigger finger release, left 2017, 2019 rotator cuff, left 2017 elbow pin after dislocation, left 1974 carpel tunnel surgery, left 2017 hyperparathyroid 2020
== END 2025-05-04 09:18 | disposition home or self-care (01) ==
LOC: HO.NEURO 09:17
PROVIDERS: Visit Provider Physician Assistant Medical
DX: G25.81 Restless legs syndrome (principal); G47.62 Sleep related leg cramps; R94.131 Abnormal electromyogram [EMG]
CPT/HCPCS: 95886; 95910

== ENCOUNTER → 2025-05-04 09:20 | Outpatient (BNV) | payer OTHER, SELFPAY | PROVIDERS: Visit Provider Physical Medicine & Rehabilitation | DX: G62.89 Other specified polyneuropathies (principal) | CPT/HCPCS: 95886; 95910 ==

== ENCOUNTER 2025-06-07 08:22 | Outpatient (AMB) | payer OTHER, SELFPAY ==
[2025-06-07 08:24] VITALS: BP 122/78; PULSE 77; O2SAT 100; BMI 25.3
--- NOTE | 2025-06-07 08:24 | MHC.OFFVIS ---
Vital Signs 06/07/25 08:24 Height 5 ft 2 in Weight 138 lb 6 oz BMI 25.3 BP 122/78 Blood Pressure Location Lt brachial Position Sitting Pulse 77 Pulse Source Pulse Oximeter Pulse Oximetry (%) 100 Oxygen Delivery Method Room Air Intake Visit Reasons: 3 mo follow up Intake Note: Patient presents follow up RLS. EMG in chart. Accompanied by: Self / Same As Patient Allergies erythromycin base Allergy (Severe, Verified 06/07/25 08:30) rash sulfamethoxazole (From Bactrim) Allergy (Severe, Verified 06/07/25 08:30) Rash trimethoprim (From Bactrim) Allergy (Severe, Verified 06/07/25 08:30) Rash Penicillins Allergy (Mild, Verified 06/07/25 08:30) gi upset HPI Comments Details: 65 y/o right handed female comes for a follow up of lower extremity nerve conduction studies. NCS / EMG 04/2025 abnormal study of the r. common peroneal nerve, prolonged latency and small amplitude. Labs reviewed with pt. 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 She wakes up with cramps bilaterally in hamstrings, paresthesias with tingling in the calves, feet and toes curling bilaterally. The pain can be so severe that it keeps her up at night. The cramps in frequency and intensity and interrupt her sleep. Usually worse in the latter part of the day. Getting up, stretching and walking helps with the l. lateral thigh and hip pain, she ices the hip and takes alleve as needed. Denies foot drop or weakness of the feet. She also has neck pain and stiffness in the mornings, she gets massages and uses ice packs for relief. She is always chronically fatigued due to intermittent sleep patterns. She denies parasomnias, nocturia, headaches, and mood irritability. She had sleep study 15 years ago. [facility] Medical History Nocturnal leg cramps Elbow dislocation Carpal tunnel syndrome Osteoporosis Surgical History S/P trigger finger release H/O parathyroidectomy History of tonsillectomy and adenoidectomy History of rotator cuff surgery Family History Father CAD (coronary artery disease) Type 2 diabetes mellitus Mother Pancreatic cancer Type 2 diabetes mellitus Sister Type 2 diabetes mellitus Ovarian carcinoma Social History Alcohol intake: current Comment: 1 glass of wine Patient Tobacco Use Status: Never used Tobacco Physical Exam Vital Signs: Last Vital Signs Pulse 77 06/07/25 08:24 BP 122/78 06/07/25 08:24 Pulse Ox 100 06/07/25 08:24 Oxygen Delivery Method Room Air 06/07/25 08:24 BMI result Body Mass Index 25.3 Const General: cooperative, comfortable and no acute distress Nutritional Appearance: average body habitus Orientation/consciousness: patient oriented x3 HEENT Face and sinus: Yes face symmetric Teeth and gingiva: other ([place] score is 4) Eyes Pupils: Equal, round and reactive pupils present Neck Other: limited rom on the l/r/ and flexion / extension Resp Effort & Inspection: normal respiratory effort and able to speak in complete sentences Neuro General: patient oriented x3 and moves all extremities Cranial nerves: Yes Equal, round and reactive pupils present, Yes Normal accommodation reflex present, Yes Normal facial strength present, Yes Midline tongue present, Yes Ability to bilaterally elevate shoulders present and Yes Other cranial nerve findings present (stiff neck and trapezius with limited rom on rotation/ and flexion / ext) Gait exam (Neuro): Normal gait present Motor exam (neuro): 5/5 motor strength present throughout and Normal motor muscle tone present throughout Deep tendon reflexes (DTR's): Right triceps reflex intensity grade: 2+, Left triceps reflex intensity grade: 2+, Rt Biceps (C5, C6): 2+, Left biceps reflex intensity grade: 2+, Right brachioradialis reflex intensity grade: 2+, Left brachioradialis reflex intensity grade: 2+, Right patellar reflex intensity grade: 2+, Left patellar reflex intensity grade: 2+, Right ankle reflex intensity grade: 2+ and Left ankle reflex intensity grade: 2+ Coordination: [id number] test normal Psych Appearance: grossly normal Affect: normal affect Thought process: Normal thought process present Results Reviewed Results Reviewed: NCS /EMG 04/2025 abnormal study. Assessment & Plan Assessment & Plan (1) Periodic limb movements of sleep: Comment: HST first if inconclusive will send her in lab for PSG Code(s): G47.61 - Periodic limb movement disorder Category: Medical (2) RLS (restless legs syndrome): Comment: gabapentin Code(s): G25.81 - Restless legs syndrome Category: Medical (3) Nocturnal leg cramps: Comment: calves and feet Code(s): G47.62 - Sleep related leg cramps Category: Medical (4) Elevated vitamin B12 level: Code(s): R79.89 - Other specified abnormal findings of blood chemistry Category: Medical (5) Bilateral leg cramps: Code(s): R25.2 - Cramp and spasm Category: Medical (6) Bursitis of left hip: Comment: PT Code(s): M70.72 - Other bursitis of hip, left hip Category: Medical Qualifiers: Hip bursitis location: unspecified Qualified Code(s): M70.72 - Other bursitis of hip, left hip (7) Cervicalgia: Comment: PT Code(s): M54.2 - Cervicalgia Category: Medical Plan Excessive daytime fatigue will do an HST to r/o aquilino and or PLMD. f/u with PSG in lab if pt. is amenable. PLMD and RLS will recheck labs. Labs reviewed with pt. will submit new labs to check B12/ Ferritin/ Homocystein/ MMA / TSH/K-/ CMP/ CBC for anemia. B12 is elevated, take B12 every other day for the next 3 months. -continue alpha-lipoic acid orally 200mg po daily otc. continue magnesium 400mg po daily at bedtime. PT for common peroneal nerve prolonged latencies and L. hip bursitis. PT for stiffness/ neck pain due to Cervicalgia. Orders: Orders RT home sleep study Today G47.19 - Other hypersomnia Ferritin Today G25.81 - Restless legs syndrome, R79.89 - Other specified abnormal findings of blood chemistry Complete Blood Count no Diff Today G25.81 - Restless legs syndrome, R79.89 - Other specified abnormal findings of blood chemistry Homocysteine Today G25.81 - Restless legs syndrome, G47.9 - Sleep disorder, unspecified, R53.83 - Other fatigue, R79.89 - Other specified abnormal findings of blood chemistry Vitamin D 25-OH Total Today G25.81 - Restless legs syndrome, R79.89 - Other specified abnormal findings of blood chemistry Vitamin B6 Today G2. - Restless legs syndrome, R79.89 - Other specified abnormal findings of blood chemistry Vitamin B12 and Folate Today G2. - Restless legs syndrome, R79.89 - Other specified abnormal findings of blood chemistry Vitamin B1 Today G2. - Restless legs syndrome, R79.89 - Other specified abnormal findings of blood chemistry PT Evaluation and Treatment Today M54.2 - Cervicalgia Comprehensive Met. Panel Today G2 - Restless legs syndrome, R79.89 - Other specified abnormal findings of blood chemistry Hemoglobin A1c Today G2. - Restless legs syndrome, R79.89 - Other specified abnormal findings of blood chemistry Methylmalonic Acid Today G2. - Restless legs syndrome, G47.9 - Sleep disorder, unspecified, R53.83 - Other fatigue, R79.89 - Other specified abnormal findings of blood chemistry TSH reflex Free T4 Today G2 - Restless legs syndrome, R79. - Other specified abnormal findings of blood chemistry Patient Instructions: Sleep Hygiene provided: set a scheduled bedtime and wake time to help regulate the circadian rhythm and balance the release of pituitary hormones. Sleep in a dark room, temperatures below 68 degrees, and no devices n bed. Limit caffeinated products 6 hours prior to bed, and limit fluids 2-4 hours prior to bed. Gentle night yoga, diffusing essential oils, and playing soft music can be relaxing. Coding Level of Care Code Est Pt Level 4 (98797) Diagnoses Periodic limb movements of sleep G47.61 RLS (restless legs syndrome) G25.81 Nocturnal leg cramps G47.62 Elevated vitamin B12 level R79.89 Bilateral leg cramps R25.2 Bursitis of left hip, unspecified bursa M70.72 Hip bursitis location: unspecified Cervicalgia M54.2
--- OUTSIDE RECORDS SUMMARY | 2025-06-07 09:19 | XMS_ITS | Patient Health Record ---
Author Organization [facility] Address [address] [facility] [place] [place] [address] Care Team Providers Care Landfill Gas Collection Operator Name Role Phone Didi Suarez MD Primary Care Provider Unavail able Black, Brinda Unavailable [phone] Allergies Allergen (clinical drug ingredient) Drug/Non Drug [...] Route Administration Date Status Comme nts COVID-19 [employer] Unknown 08/13/2021 Administered 1st dose: Social History [...] Insured Coverage Start Date Coverage End Date [facility] [address] [place] [address] [phone] [id number] Rosa Loza Self - patient is the insured Medical (General) History Medical History History ICD Code Anxiety Arthritis Back,Hip,and Knee pain Broken bones CAD (Cholesterol) Headaches/Migraines Heart disease [place] Syndrome Liver disease Osteoporosis Osteopenia Eczema chronic [...]
--- OUTSIDE RECORDS SUMMARY | 2025-06-07 09:19 | XMS_ITS | Encounter Summary ---
Author Organization [facility] Address [address] [place] [address] Phone Care Team Providers Care Flight Dispatcher Name Role Phone [place]Shay DO Unavailable [phone] Kavita Schneider PA-C Unavailable Trell Vásquez MD Unavailable [phone] Unavailable [email or web address] Cameron Dutton Unavailable [phone] Didi Suarez MD Primary Care Provider [phone] Linh Gong BOTTOM TURNER Primary Care Provider Geeta Crane BOTTOM TURNER Primary Care Provider Encounter Details Date Type Department Care Team (Late st Contact Info) Description 04/05/2019 Ancillary Orders Virtual Department 30 [place] [address] Didi Suarez MD [address] [place] [address] Breast screening Social History Tobacco Use Types Packs/Day Years Used Date Smoking Tobacco: Never Smokeless Tobacco: Never Alcohol Use Standard Drinks/Week Comments Yes 0 (1 standard drink = 0.6 oz pur e alcohol) Comments No Sex and Gender Information Value [...] RECOMMENDED FOLLOWUP: Routine screening mammography is recommended, as clinically appropriate. The results will be sent by mail to the patient. BI-RADS CATEGORY: 1 - Negative. BREAST COMPOSITION: The breast tissue is heterogeneously dense, an appearance which lowers the sensitivity of mammography. POS - CDHMAMA Narrative 06/28/2019 9:31 AM EDT EXAM: BI MAMMOGRAM SCREENING WITH TOMOSYNTHESIS WITH CAD (BILATERAL) HISTORY: Screening. * Annual Breast screening COMPARISON: Prior mammograms, most recent 06/26/2018 and dating back to 05/07/2013. TECHNIQUE: Digital breast tomosynthesis was performed in CC and MLO projections. Reconstructed 2-D C-views generated from the tomosynthesis images. Images interpreted in conjunction with R-2 Image Weatherization Director computer-aided detection (CAD). FINDINGS: BREAST COMPOSITION: The breasts are heterogeneously dense, which may obscure small masses. RIGHT breast: There are no suspicious masses, suspicious areas of architectural distortion or suspicious clusters of microcalcifications. LEFT breast: There are no suspicious masses, suspicious areas of architectural distortion or suspicious clusters of microcalcifications. Procedure Note Adry Dale MD - 06/28/2019 [...] the sensitivity of mammography. POS - CDHMAMA us Didi Suarez MD IMG MG EXAMS Final Result documented in this encounter Visit Diagnoses Diagnosis Breast screening Breast screening, unspecified Breast screening Breast screening, unspecified documented in this encounter Care Teams Flight Dispatcher Relationship Specialty Start Date End Date Didi Suarez MD [address] [place] [address] [email or web address] PCP - General Internal Medicine 03/11/18 05/21/23 Linh Gong NP [address] [address] PCP - General Nurse Practitioner 05/22/23 09/16/24 Geeta Crane NP [address] [place] [address] [email or web address] PCP - General Nurse Practitioner 09/17/24 Shay Stephens DO [address] [place] [address] Orthopedics & Sports Medicine, [facility] [place] [address] Historical LMR Provider 07/16/17 Kavita Schneider PA-C [address] [place] [address] Orthopedics & Sports Medicine, [place] [address] Historical LMR Provider 07/16/17 10/06/21 Trell Vásquez MD [address] [facility], [address] [place] [address] Historical LMR Provider 07/16/17 10/06/21 Doris Martin, NATHAN Historical LMR Provider 07/16/17 10/06/21 Cameron Dutton PA [address] [place] [address] Historical LMR Provider 07/16/17 2 documented as of this encounter Additional Source Comments The information contained in this document represents components of the legal health record. It is not the complete legal health record.[facility]
--- OUTSIDE RECORDS SUMMARY | 2025-06-07 09:19 | XMS_ITS | Encounter Summary ---
Author Organization [facility] Address [address] [place] [address] Phone Care Team Providers Care Paper Cone Machine Operator Name Role Phone [place] ClearShay solomon DO Unavailable [phone] Didi Suarez MD Primary Care Provider [phone] Linh Gong PASSENGER SOLICITOR Primary Care Provider Geeta Crane PASSENGER SOLICITOR Primary Care Provider Encounter Details Date Type Department Care Team (Late st Contact Info) Description 07/24/2022 Procedure Pass [facility] - [address] [place] [address] Social History Tobacco Use Types Packs/Day Years Used Date Smoking Tobacco: Never Smokeless Tobacco: Never Alcohol Use Standard Drinks/Week Comments Yes 10 (1 standard drink = 0.6 oz pu re alcohol) Comments No Sex and Gender Information [...] documented as of this encounter Care Teams Paper Cone Machine Operator Relationship Specialty Start Date End Date Didi Suarez MD [address] [place] [address] 1 [place] [address] [email or web address] PCP - General Internal Medicine 03/11/18 05/21/23 Linh Gong, BAUDILIO [address] [facility] [address] [place] [address] PCP - General Nurse Practitioner 05/22/23 09/16/24 Geeta Crane NP [address] [place] [address] [place] [phone] [email or web address] PCP - General Nurse Practitioner 09/17/24 Shay Stephens DO [address] [place] [address] Orthopedics & Sports Medicine, [place] [address] [email or web address] Historical LMR Provider 07/16/17 documented as of this encounter Additional Source Comments The information contained in this document represents components of the legal health record. It is not the complete legal health record.[facility]
--- OUTSIDE RECORDS SUMMARY | 2025-06-07 09:19 | XMS_ITS | Encounter Summary ---
Author Organization [facility] Address [address] [place] [address] Phone Care Team Providers Care Waistline Joiner Overlock Name Role Phone Shay Stephens DO Unavailable Kavita Schneider PA-C Unavailable Trell Vásquez MD Unavailable [address]is Martin [address] Unavailable [email or web address] Cameron Dutton Unavailable [phone] Didi Suarez MD Primary Care Provider Linh Gong DIRECTOR OF CURRICULUM AND INSTRUCTION Primary Care Provider Geeta Crane DIRECTOR OF CURRICULUM AND INSTRUCTION Primary Care Provider Encounter Details Date Type Department Care Team (Late st Contact Info) Description 11/03/2018 Procedure Pass [facility], [address] [place] [address] Social History Tobacco Use Types Packs/Day Years [...] on filedocumented in this encounter Care Teams Waistline Joiner Overlock Relationship Specialty Start Date End Date Didi Suarez MD [address] [facility] 1 [place] [address] [email or web address] PCP - General Internal Medicine 03/11/18 05/21/23 Linh Gong, DIRECTOR OF CURRICULUM AND INSTRUCTION [facility] [address] [address] PCP - General Nurse Practitioner 05/22/23 09/16/24 Geeta Crane, BAUDILIO [address] [place] [address] [place] [phone] [email or web address] PCP - General Nurse Practitioner 09/17/24 Shay Stephens DO [address] [place] [address] Orth[facility]ics [facility] Sports Medicine, [place] [address] [email or web address] Historical LMR Provider 07/16/17 Kavita Schneider PA-C [address] [place] [address] Orthopedics Sports [facility], [place] [address] [email or web address] Historical LMR Provider 07/16/17 10/06/21 Trell Vásquez MD [address] [facility] [address] [place] [address] Historical LMR Provider 07/16/17 10/06/21 Doris Martin, RDCS Historical LMR Provider 07/16/17 10/06/21 Cameron Dutton PA [address] [place] [address] Historical LMR Provider 07/16/17 2 documented as of this encounter Additional Source Comments The information contained in this document represents components of the legal health record. It is not the complete legal health record.[facility]
--- OUTSIDE RECORDS SUMMARY | 2025-06-07 09:19 | XMS_ITS | Encounter Summary ---
Author Organization Formerly [facility] Address [address] [place] [address] Phone Care Team Providers Care Eyewear Manufacturing Tech Name Role Phone CrestonShay DO Unavailable Kavita Schneider PA-C Unavailable Trell Vásquez MD Unavailable Doris Martin RD Unavailable [email or web address] Cameron Dutton Unavailable [phone] Didi Suarez MD Primary Care Provider Linh Gong RECRUITING SCHEDULER Primary Care Provider Geeta Crane RECRUITING SCHEDULER Primary Care Provider Encounter Details Date Type Department Care Team (Late st Contact Info) Description 04/20/2021 Ancillary Orders Virtual Department 30 [place] [address] Didi Suarez MD 25 [place] [address] Breast screening Social History Tobacco Use Types [...] AM EDT No mammographic evidence of malignancy. Recommend routine annual surveillance. BI-RADS CATEGORY: 2 - Benign finding. DENSITY: The breast tissue is heterogeneously dense, which could obscure a lesion on mammography. Narrative 07/02/2021 11:19 AM EDT 61-year-old female with no current breast symptoms. Comparison made to previous on 06/29/2020 and as far back as 05/26/2015. Interpretation made in conjunction with computer-aided detection and [...] mammography. Didi Suarez MD IMG MG EXAMS Final Result documented in this encounter Visit Diagnoses Diagnosis Breast screening Breast screening, unspecified Breast screening Breast screening, unspecified documented in this encounter Care Teams Eyewear Manufacturing Tech Relationship Specialty Start Date End Date Didi Suarez MD 35 [facility] 1 [place] [address] [email or web address] PCP - General Internal Medicine 03/11/18 05/21/23 Linh Gong, BAUDILIO [facility] Acostagerardo Tika [address] [address] PCP - General Nurse Practitioner 05/22/23 09/16/24 Geeta Crane, BAUDILIO [address] [place] [address] [place] [phone] [email or web address] PCP - General Nurse Practitioner 09/17/24 Shay Stephens DO 4 [facility], [place] [address] [email or web address] Historical LMR Provider 07/16/17 Kavita Schneider PA-C 4 [facility], [place] [address] Historical LMR Provider 07/16/17 10/06/21 Trell Vásquez MD 22 [facility] 102 [place] [address] Historical LMR Provider 07/16/17 10/06/21 Doris Martin, RDCS Historical LMR Provider 07/16/17 10/06/21 Cameron Dutton PA 40 [place] [address] Historical LMR Provider 07/16/17 2 documented as of this encounter Additional Source Comments The information contained in this document represents components of the legal health record. It is not the complete legal health record.[facility]
--- OUTSIDE RECORDS SUMMARY | 2025-06-07 09:19 | XMS_ITS | Clinical Summary ---
Author Organization [facility] Address [address] [place] [phone] Phone Care Team Providers Care Religious Ritual Slaughterer Name Role Phone Chau Godwin MD Primary Care Provider [phone] Allergies Active Allergy Reactions Criticality Noted Date [...] ovary Immunizations Name Administration Dates Next Due Teliportme/Boxxet SARS-CoV-2 COVID -19, vector-nr, rS-Ad26, preservative free 12/16/2020 Surgical History Surgery Date Site/Laterality Comments OTHER SURGICAL HISTORY PROCEDURE: CT DILATION & CURETTAGE DX&/THER NONOBSTETRIC OTHER SURGICAL [...] care for your loved ones. For example, early childhood lead teacher or elderly care for an older adult? [...] Density Screening) 09/07/2022 Influenza Vaccine (#1) 2025 4, 07/28/2023, 07/29/2022, Additional history exists Social Influencers [...] Most Recently Relevant to Health Maintenance Insurance [facility] Care Teams Religious Ritual Slaughterer Relationship Specialty Start Date End Date Chau Godwin MD [address] [place], [place] [address] [place] [address] PCP - General Internal Medicine 12/14/24
--- OUTSIDE RECORDS SUMMARY | 2025-06-07 09:19 | XMS_ITS | Encounter Summary ---
Author Organization [facility] Address [address] [place] [address] Phone Care Team Providers Care Women'S Studies Lecturer Name Role Phone Odalys Stephenskorey Shabazz DO Unavailable [phone] Linh Gong METER REPAIR SHOP SUPERVISOR Primary Care Provider Geeta Crane METER REPAIR SHOP SUPERVISOR Primary Care Provider Encounter Details Date Type Department Care Team (Latest Contact Info) Description 05/18/2024 Transcribe Orders Virtual Department 30 [place], [place] [phone] Chau Godwin MD [address] [address] Breast screening (Primary Dx) Social [...] recommendations. Chau Godwin MD IMG MG EXAMS Margo l Result documented in this encounter Visit Diagnoses Diagnosis Breast screening- Primary Breast screening, unspecified Breast screening Breast screening, unspecified documented in this encounter Additional Health Concerns Assessment Noted Time PHQ-2 Depression Total Score: 0 07/23/20 12:08 PM EDT documented as of this encounter Care Teams Women'S Studies Lecturer Relationship Specialty Start Date End Date Linh Gong NP [address] [address] PCP - General Nurse Practitioner 05/22/23 09/16/24 Geeta Crane NP [address] [place] [address] [place] [phone] [email or web address] PCP - General Nurse Practitioner 09/17/24 Shay Stephens DO [address] [place] [address] Orthopedics & Sports Medicine, [place] [address] [email or web address] Historical LMR Provider 07/16/17 documented as of this encounter Additional Source Comments The information contained in this document represents components of the legal health record. It is not the complete legal health record.[facility]
--- OUTSIDE RECORDS SUMMARY | 2025-06-07 09:19 | XMS_ITS | Encounter Summary ---
Author Organization [facility] Address [address] [place] [address] Phone Care Team Providers Care Senior Oracle Soa Developer Name Role Phone LennonShay DO Unavailable Kavita Schneider PA-C Unavailable [phone] Trell Vásquez MD Unavailable Doris Martin RD Unavailable [email or web address] Cameron Dutton Unavailable Didi Suarez MD Primary Care Provider [phone] Linh Gong BEAMER HAND Primary Care Provider Geeta Crane BEAMER HAND Primary Care Provider Encounter Details Date Type Department Care Team (Late st Contact Info) Description 05/18/2018 Ancillary Orders Virtual Department 30 [place] [address] Didi Suarez MD 25 [place] [address] Breast screening Social History Tobacco Use Types [...] AM EDT No mammographic signs of malignancy. Annual screening [...] as 04/27/2012 and as recent as 06/24/2017. No suspicious masses, areas [...] normal) Didi Suarez MD IMG MG EXAMS Final Result documented in this encounter Visit Diagnoses Diagnosis Breast screening Breast screening, unspecified Breast screening Breast screening, unspecified documented in this encounter Care Teams Senior Oracle Soa Developer Relationship Specialty Start Date End Date Didi Suarez MD [address] [place] [address] 1 [place] [address] [email or web address] PCP - General Internal Medicine 03/11/18 05/21/23 Linh Gong, BEAMER HAND [address] [address] PCP - General Nurse Practitioner 05/22/23 09/16/24 Geeta Crane, BAUDILIO [address] [place] [address] [place] [phone] [email or web address] PCP - General Nurse Practitioner 09/17/24 Shay Stephens DO 4 [facility] Orthopedics & Sports [facility], [place] [address] [email or web address] Historical LMR Provider 07/16/17 Kavita Schneider PA-C 4 [facility] Orth[facility], [place] [address] [email or web address] Historical LMR Provider 07/16/17 10/06/21 rTell Vásquez MD 22 [facility] 102 [place] [address] Historical LMR Provider 07/16/17 10/06/21 Doris Martin, NATHAN Historical LMR Provider 07/16/17 10/06/21 Cameron Dutton PA [address] [place] [phone] Historical LMR Provider 07/16/17 2 documented as of this encounter Additional Source Comments The information contained in this document represents components of the legal health record. It is not the complete legal health record.[facility]
--- OUTSIDE RECORDS SUMMARY | 2025-06-07 09:19 | XMS_ITS | Clinical Summary ---
Author Organization [facility] Address [address] [place] [address] Phone Care Team Providers Care Trestleman Name Role Phone Shay Stephens DO Unavailable [phone] Geeta Crane NP Primary Care Provider Allergies Active Allergy Reactions Criticality Noted Date Comments Cefaclor Rash Low 11/03/2018 nausea Erythromycin Unknown 03/19/2017 Gluten 06/16/2023 Latex Swelling Medium 01/03/2023 Milk Containing Products (Dairy) 06/16/2023 Penicillin Unknown 03/19/2017 Penicillins 03/02/2024 Other Reaction(s): brother and sister are severely allergic so they don't give me penicillin Sulfamethoxazole-Trimethopri m Rash Low 11/03/2018 Nausea Medications cholecalciferol (VITAMIN D3) 2,000 unit tablet Take 1,000 Units by mouth daily. Active Lactobacillus acidophilus (PROBIOTIC ACIDOPHILUS ORAL) Take 1 teaspoonful by mouth every morning. For gut health Active calcium carbonate/vitami n D3 (CALCIUM 500 + D ORAL) 1,200 mg daily. Active triamcinolone acetonide 0.025 % cream Apply topically 2 (two) times a day. Rash external ears, sparingly, 5 days per month. 30 g 2 Active Additional Information Patient taking differently: 1 application.Topical2 times daily PRN, Rash external ears, sparingly, 5 days per month., Reported on 12/27/2022 valACYclovir (VALTREX) 500 MG tablet 1 po bid x 3 days prn cold sore episode 30 tablet 1 3 Active POTASSIUM GLUCONATE ORAL Take 90 mg by mouth daily. Active magnesium oxide 250 mg (150 mg elemental) Tab Take 250 mg by mouth daily. Active predniSONE (DELTASONE) 10 MG tablet PLEASE SEE ATTACHED FOR DETAILED DIRECTIONS 4 Active betamethasone, augmented, (DIPROLENE AF) 0.05 % cream PLEASE SEE ATTACHED FOR DETAILED DIRECTIONS 4 Active Active Problems Problem Noted Date Diagnosed Date Right shoulder pain 10/27/2018 History of repair of left rotator cuff 7 Complete tear of left rotator cuff 07/30/2017 Immunizations Immunization Administration Dates Next Due COVID-19 (Pre-07/21) Arturo [...] 72 03/03/2023 1:01 PM EDT Temperature 37.2 C (99 F) 03/03/2023 12:47 PM EDT Respiratory Rate 17 03/03/2023 1:01 PM EDT Oxygen Saturation 99% 03/03/2023 1:01 PM EDT Inhaled Oxygen Concentration - - Weight 62.1 kg (137 lb) 03/03/2023 11:22 AM EDT Height 157.5 cm (5' 2 ) 03/03/2023 11:22 AM EDT Body Mass Index 25.06 03/03/2023 11:22 AM EDT Plan of Treatment Health Maintenance Due Date Last Done Comments COLOGUARD 2006 FIT TEST 2006 FOBT 2006 SIGMOIDOSCOPY 2006 VIRTUAL COLONOSCOPY 2006 PNEUMOCOCCAL VACCINES (50+ years) (1 of 1 - PCV) 2011 ZOSTER VACCINES (1 of 2) 2011 PAP SMEAR 11/10/2017 11/10/2014 Adult Td,Tdap Booster 07/04/2019 07/04/2009 DEPRESSION SCREENING 07/23/2023 07/23/2022 POTASSIUM LEVEL 07/26/2023 07/26/2022, 04/20/2021 INFLUENZA VACCINE (#1) 2025 , 07/28/2023, 07/29/2022, Additional history exists COVID-19 VACCINE ( season) 2025 08/05/2022, 04/19/2022, 08/20/2021, Additional history exists SCREENING FOR DIABETES 07/26/2025 07/26/2022, 2020 MAMMOGRAM 09/17/2026 09/17/2024, 07/30, 08/14/2022, Additional history exists LIPID PANEL 07/26/2027 07/26/2022, 1003/2021, 07/05/2021, Additional history exists COLONOSCOPY 03/03/2033 03/03/2023, 10/19/2012 COLORECTAL CANCER SCREENING 03/03/2033 RSV VACCINE (1 - 1-dose 75+ series) 2036 HEPATITIS C SCREENING Completed 07/26/2022 HIV ONE-TIME SCREENING (18-65 YEARS) Completed 07/26/2022 SMOKING STATUS SCREENING (Once After 26 Yrs) Completed 09/17/2024 HEPATITIS A VACCINES Aged Out No long er eligible based on patient's age to complete this topic HIB VACCINES Aged Out No longer eligi ble based on patient's age to complete this topic MENINGOCOCCAL VACCINES (ACWY) Aged Out No longer eligible based on patient's age to complete this topic MENINGOCOCCAL VACCINES (B) Aged Out N o longer eligible based [...] MD IMG MG EXAMS Margo l Result * ENDOSCOPY, COLON (03/03/2023 12:18 PM EDT) Narrative Transcriptions Joselito Schmidt MD - 03/03/2023 12:18 PM EDT [facility] Patient Name: Rosa Loza Attending MD:: JOSELITO SCHMIDT MD, , Procedure Date: 03/03/2023 12:18 PM Date of : 1960 Age: 62 Admit Type: Outpatient Gender: Female Room: [facility] 04 Referring MD: DIDI SIFUENTES Exam Type: Colonoscopy [...] bowel preparation was evaluated using the BBPS ([place] Bowel Preparation Scale)with scores of: Right Colon [...] 12:18 PM Procedure Code(s): --- Professional --- 44975, Colonoscopy, flexible; diagnostic, including collection of specimen(s) by brushing or washing, when performed (separateprocedure) --- Technical --- 63297, Colonoscopy, flexible; diagnostic, including collection of specimen(s) by brushing or washing, when performed (separateprocedure) Diagnosis Code(s): --- Professional --- Z12.11, Encounter for screening for malignantneoplasm of colon K64.8, Other hemorrhoids --- Technical --- Z12.11, Encounter for screening for malignantneoplasm of colon K64.8, Other hemorrhoids CPT copyright 2021 [employer]. All rights reserved. The codes documented in this report are preliminary and upon proofsheet corrector reviewmay be revised to meet current compliance requirements. Procedure Date: 03/03/2023 12:18:[address] [place] [address] Didi Sifuentes MD GI PROCEDURE ORDERABLES Margo payan Result * Comprehensive metabolic panel (07/26/2022 9:01 AM EDT) SODIUM 142 133 - 146 mmol/L [facility] POTASSIUM 4.1 3.3 - 5.1 mmol/L [facility] CHLORIDE 103 96 - 108 mmol/L [facility] CO2 27 21 - 35 mmol/L [facility] BUN 19 6 - 19 mg/dL [facility] CREATININE 0.70 0.5 - 1.5 mg/dL [facility] GLUCOSE 87 70 - 99 mg/dL [facility] ALBUMIN 4.4 3.9 - 4.8 g/dL [facility] TOTAL PROTEIN 7.2 6.5 - 8.0 g/dL [facility] CALCIUM 9.1 8.4 - 10.3 mg/dL [facility] ALKALINE PHOSPHATASE 60 39 - 117 U/L [facility] TOTAL BILIRUBIN 1.0 0.0 - 1.2 mg/dL [facility] AST 24 0 - 37 U/L [facility] ALT 19 0 - 40 U/L [facility] GLOBULIN 2.8 1 - 4.8 g/dL [facility] EGFR 98 >59 mL/min/1.7 3m2 [facility] Comment:Estimated glomerular filtration rate calculated using the CKD-EPI refit equation. ANION GAP 16 10 - 20 mmol/L [facility] Blood 07/26/2022 9:01 AM EDT 07/26/2022 9:04 AM EDT Didi Sifuentes MD LAB BLOOD ORDERABLES Final R esult Performing Organization Address City/[facility]/ZIP Co de Phone Number [address] [address] * Hepatitis C antibody, qualitative (07/26/2022 9:01 AM EDT) HCV NON-REACTIV E NON-REACTI VE [facility] Blood 07/26/2022 9:01 AM EDT 07/26/2022 9:04 AM EDT Didi Sifuentes MD LAB BLOOD ORDERABLES Final R [facility] Performing Organization Address [facility] Co de Phone Number [address] [address] * (ABNORMAL) Lipid panel (07/26/2022 9:01 AM EDT) HDL 102 mg/dL [facility] Comment: Interpretation <40 mg/dL: Low HDL cholesterol (major risk factor for CHD) Greater than or equal to 60 mg/dL: High HDL cholesterol ( negative risk factor for CHD) HDL - cholesterol is affected by a number of factors, e.g. smoking, excerise, hormones, sex and age. CHOLESTEROL 263(H) 0 - 240 mg/dL [facility] TRIGLYCERIDES 120 30 - 160 mg/dL [facility] LDL 137(H) 50 - 129 mg/dL [facility] Comment: LDL levels in terms of risk for coronary heart disease: <100 mg/dL: Optimal 100-129 mg/dL: Near or above optimal 130-159 mg/dL: Borderline high 160-189 mg/dL: High >190 mg/dL: Very High CARDIAC RISK RATIO 2.6(L) 3.3 - 4.4 [facility] Blood 07/26/2022 9:01 AM EDT 07/26/2022 9:04 AM EDT us Didi Sifuentes MD LAB BLOOD ORDERABLES Final R esult [facility] 30 [place] [address] * Outside Glucose,Fasting (04/20/2021) Glucose, fasting - External 80 65 - 99 mg/dL us Historical Provider LAB BLOOD ORDERABLES Margo l Result from Last 3 Months or Most Recently Relevant to Health Maintenance Insurance [facility] C3 O [facility] [address] [facility] [address] [facility] Member Subscriber Plan / Payer (Ef fective 2023-Present) Name:Rosa Loza Relation to Subscriber:Self Name:Rosa Loza Payer ID:Not on file Type:HMO Address: [address] C3 ACO [facility] C3 ACO [facility] C3 ACO Care Teams Trestleman Relationship Specialty Start Date End Date Geeta Crane NP [address] [place] [address] [place] [phone] [email or web address] PCP - General Nurse Practitioner 09/17/24 Shay Stephens DO [address] [place] [address] Orthopedics & Sports Medicine, [facility] [place] [place] [address] [email or web address] Historical LMR Provider 07/16/17 Additional Source Comments The information contained in this document represents components of the legal health record. It is not the complete legal health record.[facility]
--- OUTSIDE RECORDS SUMMARY | 2025-06-07 09:19 | XMS_ITS | Encounter Summary ---
Author Organization [facility] Address [address] [place] [address] Phone Care Team Providers Care Shoveler Name Role Phone Shay Stephens DO Unavailable [phone] Kavita Schneider PA-C Unavailable [phone] Trell Vásquez MD Unavailable Doris Martin RD Unavailable [email or web address] Cameron Dutton Unavailable [phone] Didi Suarez MD Primary Care Provider Linh Gong VP INTEGRITY Primary Care Provider Geeta Crane VP INTEGRITY Primary Care Provider Encounter Details Date Type Department Care Team (Late st Contact Info) Description 05/30/2020 Procedure Pass [facility] - [address] [place] [address] Social History Tobacco Use Types Packs/Day Years [...] on filedocumented in this encounter Care Teams Shoveler Relationship Specialty Start Date End Date Didi Suarez MD 35 [facility] 1 [place] [address] [email or web address] PCP - General Internal Medicine 03/11/18 05/21/23 Linh Gong, VP INTEGRITY [facility] Acostagerardo Tika [address] [address] PCP - General Nurse Practitioner 05/22/23 09/16/24 Geeta Crane, BAUDILIO [address] [place] [address] [place] [phone] [email or web address] PCP - General Nurse Practitioner 09/17/24 Shay Stephens DO [address] [place] [address] Orthopedics & Sports [facility], [place] [address] [email or web address] Historical LMR Provider 07/16/17 Kavita Schneider PA-C 4 [facility] Orthopedics Sports [facility], [place] [address] [email or web address] Historical LMR Provider 07/16/17 10/06/21 Trell Vásquez MD 22 [facility] [address] [place] [address] Historical LMR Provider 07/16/17 10/06/21 Doris Martin, RDCS Historical LMR Provider 07/16/17 10/06/21 Caemron Dutton PA [address] [place] [address] Historical LMR Provider 07/16/17 2 documented as of this encounter Additional Source Comments The information contained in this document represents components of the legal health record. It is not the complete legal health record.[facility]
--- OUTSIDE RECORDS SUMMARY | 2025-06-07 09:19 | XMS_ITS | Encounter Summary ---
Author Organization [facility] Address [address] [place] [address] Phone Care Team Providers Care Quality Assurance Qa Lab Technician Name Role Phone AbernathyShay DO Unavailable [phone] Kavita Schneider PA-C Unavailable Trell Vásquez MD Unavailable [phone] Unavailable [email or web address] Cameron Dutton Unavailable Didi Suarez MD Primary Care Provider Linh Gong CARDIOPULMONARY SUPERVISOR Primary Care Provider Geeta Crane CARDIOPULMONARY SUPERVISOR Primary Care Provider Encounter Details Date Type Department Care Team (Late st Contact Info) Description 04/10/2020 Ancillary Orders Virtual Department 30 [place] [address] Didi Suarez MD 25 [place] [address] Breast screening Social History Tobacco Use Types [...] recommended. BI-RADS CATEGORY 1 - NEGATIVE DENSITY: The breast tissue is heterogeneously dense, which may obscure small masses Narrative 06/29/2020 9:50 AM EDT COMPARISON: 05/20/2014 through 06/28/2019 Bilateral 3-D tomosynthesis with 2-D reconstructions in the CC and MLO projection. Computer-aided detection system also utilized. No new mass, asymmetry, architectural distortion or suspicious calcifications have become apparent on either side. us Didi Suarez MD IMG MG EXAMS Final Result documented in this encounter Visit Diagnoses Diagnosis Breast screening Breast screening, unspecified Breast screening Breast screening, unspecified documented in this encounter Care Teams Quality Assurance Qa Lab Technician Relationship Specialty Start Date End Date Didi Suarez MD [address] [place] [address] PCP - General Internal Medicine 03/11/18 05/21/23 Linh Gong NP [address] [address] PCP - General Nurse Practitioner 05/22/23 09/16/24 Geeta Crane NP [address] [place] [address] [email or web address] PCP - General Nurse Practitioner 09/17/24 Shay Stephens DO 4 [facility] Orthopedics & Sports [facility], [place] [address] [email or web address] Historical LMR Provider 07/16/17 Kavita Schneider PA-C 4 [facility] [address] [facility], [place] [address] [email or web address] Historical LMR Provider 07/16/17 10/06/21 Trell Vásquez MD 22 [facility] 102 [place] [address] Historical LMR Provider 07/16/17 10/06/21 Doris Martin, JAMALCS Historical LMR Provider 07/16/17 10/06/21 Cameron Dutton PA [address] [place] [id number] Historical LMR Provider 07/16/17 2 documented as of this encounter Additional Source Comments The information contained in this document represents components of the legal health record. It is not the complete legal health record.[facility]
--- OUTSIDE RECORDS SUMMARY | 2025-06-07 09:19 | XMS_ITS | Clinical Summary ---
Author Organization [employer] [facility] Address [address] [place] [address] Care Team Providers Care Tank House Operator Helper Name Role Phone Unknown, Primary Care Provider [...] or Tdap) 07/04/2019 07/04/2009 COVID-19 Vaccine (3 - 2024-2 6 season) 2025 08/13/2021, 12/16/2020 Influenza Vaccine (#1) 2025 2, [...] age to complete this topic Care Teams Tank House Operator Helper Relationship Specialty Start Date End Date Unknown, PCP - General 09/03/23
--- OUTSIDE RECORDS SUMMARY | 2025-06-07 09:19 | XMS_ITS | Encounter Summary ---
Author Organization [facility] Address [address] [place] [address] Phone Care Team Providers Care Lead Coater Name Role Phone [place], Shay Shabazz DO Unavailable [phone] Didi Suarez MD Primary Care Provider [phone] Linh Gong TEACHER VOCAL Primary Care Provider Geeta Crane TEACHER VOCAL Primary Care Provider Encounter Details Date Type Department Care Team (Late st Contact Info) Description 03/03/2023 Procedure Pass [facility] Endoscopy Admitting Dept Virtual Department [address] [place] [address] Social History Tobacco Use Types Packs/Day Years [...] documented as of this encounter Care Teams Lead Coater Relationship Specialty Start Date End Date Didi Suarez MD [address] [place] [address] [email or web address] PCP - General Internal Medicine 03/11/18 05/21/23 Linh Gong NP [address] [address] PCP - General Nurse Practitioner 05/22/23 09/16/24 Geeta Crane NP [address] [place] [address] [place] [address] [email or web address] PCP - General Nurse Practitioner 09/17/24 Shay Stephens DO [address] [place] [address] Orthopedics & Sports Medicine, [place] [address] [email or web address] Historical LMR Provider 07/16/17 documented as of this encounter Additional Source Comments The information contained in this document represents components of the legal health record. It is not the complete legal health record.[facility]
--- OUTSIDE RECORDS SUMMARY | 2025-06-07 09:19 | XMS_ITS | Encounter Summary ---
Author Organization [facility] Address [address] [place] [address] Phone Care Team Providers Care Scout Sniper Name Role Phone [place], Shay Shabazz DO Unavailable [phone] Linh Gong TRANSIT OPERATIONS SUPERVISOR Primary Care Provider Geeta Crane TRANSIT OPERATIONS SUPERVISOR Primary Care Provider Encounter Details Date Type Department Care Team (Late st Contact Info) Description 05/18/2024 Procedure Pass [facility] - [address] [place] [address] Social History Tobacco Use Types Packs/Day Years [...] documented as of this encounter Care Teams Scout Sniper Relationship Specialty Start Date End Date Linh Gong, BAUDILIO [address] [place] [address] PCP - General Nurse Practitioner 05/22/23 09/16/24 Geeta Crane NP [address] [place] [address] [place] [address] [email or web address] PCP - General Nurse Practitioner 09/17/24 Shya Stephens DO [address] [place] [address] Orthopedics & Sports Medicine, [facility] [place] [address] [email or web address] Historical LMR Provider 07/16/17 documented as of this encounter Additional Source Comments The information contained in this document represents components of the legal health record. It is not the complete legal health record.[facility]
--- OUTSIDE RECORDS SUMMARY | 2025-06-07 09:19 | XMS_ITS | Encounter Summary ---
Author Organization [facility] Address [address] [place] [address] Phone Care Team Providers Care Laboratory Geneticist Name Role Phone Shay Stephens DO Unavailable Kavita Schneider PA-C Unavailable Trell Vásquez MD Unavailable [phone] Unavailable [email or web address] Cameron Dutton Unavailable Didi Suarez MD Primary Care Provider Linh Gong INSTRUCTOR OF SPANISH Primary Care Provider Geeta Crane INSTRUCTOR OF SPANISH Primary Care Provider Encounter Details Date Type Department Care Team (Late st Contact Info) Description 04/20/2021 Procedure Pass [facility] - [address] [place] [address] Social History Tobacco Use Types Packs/Day Years [...] on filedocumented in this encounter Care Teams Laboratory Geneticist Relationship Specialty Start Date End Date Didi Suarez MD 35 [facility] 1 [place] [address] [email or web address] PCP - General Internal Medicine 03/11/18 05/21/23 Linh Gong, INSTRUCTOR OF SPANISH [facility] Acostagerardo Tika [address] [address] PCP - General Nurse Practitioner 05/22/23 09/16/24 Geeta Crane, BAUDILIO [address] [place] [address] [place] [phone] [email or web address] PCP - General Nurse Practitioner 09/17/24 Shay Stephens DO 4 [facility], [place] [address] [email or web address] Historical LMR Provider 07/16/17 Kavita Schneider PA-C 4 [facility], [place] [address] Historical LMR Provider 07/16/17 10/06/21 Trell Vásquez MD 22 [facility] 102 [place] [address] Historical LMR Provider 07/16/17 10/06/21 Doris Martin, RDCS Historical LMR Provider 07/16/17 10/06/21 Cameron Dutton PA 40 [place] [address] Historical LMR Provider 07/16/17 2 documented as of this encounter Additional Source Comments The information contained in this document represents components of the legal health record. It is not the complete legal health record.[facility]
--- OUTSIDE RECORDS SUMMARY | 2025-06-07 09:19 | XMS_ITS | Encounter Summary ---
Author Organization [facility] Address [address] [place] [address] Phone Care Team Providers Care Camera Maker Name Role Phone Shay Stephens DO Unavailable [phone] Didi Suarez MD Primary Care Provider [phone] Linh Gong ANGIOGRAPHER Primary Care Provider Geeta Crane ANGIOGRAPHER Primary Care Provider Encounter Details Date Type Department Care Team (Late st Contact Info) Description 01/07/2023 Procedure Pass [facility] Endoscopy Admitting Dept Virtual Department [address] [place] [address] Social History Tobacco Use Types Packs/Day Years [...] documented as of this encounter Care Teams Camera Maker Relationship Specialty Start Date End Date Didi Suarez MD [address] [place] [address] 1 [place] [address] [email or web address] PCP - General Internal Medicine 03/11/18 05/21/[address] [facility] [address] [address] PCP - General Nurse Practitioner 05/22/23 09/16/24 Geeta Crane NP [address] [place] [address] [place] [address] [email or web address] PCP - General Nurse Practitioner 09/17/24 Shay Stephens DO [address] [place] [address] Orthopedics & Sports Medicine, [place] [address] [email or web address] Historical LMR Provider 07/16/17 documented as of this encounter Additional Source Comments The information contained in this document represents components of the legal health record. It is not the complete legal health record.[facility]
--- OUTSIDE RECORDS SUMMARY | 2025-06-07 09:19 | XMS_ITS | Encounter Summary ---
Author Organization [facility] Address [address] [place] [address] Phone Care Team Providers Care Greeter Guest Services Name Role Phone [place], Shay Shabazz DO Unavailable [phone] Linh Gong ACQUISITION MANAGER Primary Care Provider Geeta Crane ACQUISITION MANAGER Primary Care Provider Encounter Details Date Type Department Care Team (Late st Contact Info) Description 05/22/2023 Procedure Pass [facility] - [address] [place] [address] Social History Tobacco Use Types Packs/Day Years [...] documented as of this encounter Care Teams Greeter Guest Services Relationship Specialty Start Date End Date Linh Gong, BAUDILIO [address] [place] [address] PCP - General Nurse Practitioner 05/22/23 09/16/24 Geeta Crane NP [address] [place] [address] [place] [address] [email or web address] PCP - General Nurse Practitioner 09/17/24 Shay Stephens DO [address] [place] [address] Orthopedics & Sports Medicine, [facility] [place] [address] [email or web address] Historical LMR Provider 07/16/17 documented as of this encounter Additional Source Comments The information contained in this document represents components of the legal health record. It is not the complete legal health record.[facility]
--- OUTSIDE RECORDS SUMMARY | 2025-06-07 09:19 | XMS_ITS | Encounter Summary ---
Author Organization [facility] Address [address] [place] [address] Phone Care Team Providers Care Director Of Donor Relations Name Role Phone Shay Stephens DO Unavailable [phone] Linh Gong INFORMATION WRITER Primary Care Provider Geeta Crane INFORMATION WRITER Primary Care Provider Encounter Details Date Type Department Care Team (Late st Contact Info) Description 05/22/2023 Transcribe Orders Virtual Department 30 [place] [address] Linh Gong, BAUDILIO 35 [facility] [address] [place] [address] Breast screening (Primary Dx) Social History Tobacco [...] There are scattered fibroglandular densities. Linh Gong INFORMATION WRITER IMG MG EXAMS Final Result documented in this encounter Visit Diagnoses Diagnosis Breast screening- Primary Breast screening, unspecified Breast screening Breast screening, unspecified documented in this encounter Additional Health Concerns Assessment Noted Time PHQ-2 Depression Total Score: 0 07/23/20 12:08 PM EDT documented as of this encounter Care Teams Director Of Donor Relations Relationship Specialty Start Date End Date Linh Gong, BAUDILIO [address] [facility] 102 [place] [address] PCP - General Nurse Practitioner 05/22/23 09/16/24 Geeta Crane NP [address] [place] [address] [place] [id number] [email or web address] PCP - General Nurse Practitioner 09/17/24 Shay Stephens DO [address] [place] [address] Orthopedics & Sports Medicine, [place] [address] [email or web address] Historical LMR Provider 07/16/17 documented as of this encounter Additional Source Comments The information contained in this document represents components of the legal health record. It is not the complete legal health record.[facility]
== END 2025-06-07 09:08 | disposition home or self-care (01) ==
LOC: HO.HSMS 08:22
PROVIDERS: PCP Internal Medicine; Visit Provider Physician Assistant Medical
DX: G47.61 Periodic limb movement disorder (principal); G25.81 Restless legs syndrome; G47.62 Sleep related leg cramps; R79.89 Other specified abnormal findings of blood chemistry; R25.2 Cramp and spasm; M70.72 Other bursitis of hip, left hip; M54.2 Cervicalgia
CPT/HCPCS: 99214

== ENCOUNTER 2025-09-26 08:56 | Outpatient (AMB) | payer OTHER, SELFPAY ==
--- NOTE | 2025-09-26 08:52 | MHC.OFFVIS ---
Vital Signs 09/26/25 08:53 Height 5 ft 2 in Weight 140 lb BMI 25.6 BP 132/80 Blood Pressure Location Rt brachial Position Sitting Pulse 67 Pulse Source Pulse Oximeter Pulse Oximetry (%) 97 Oxygen Delivery Method Room Air Intake Visit Reasons: 3 mo follow up Intake Note: Patient presents follow up RLS. No Labs/HST Feeder Tender Required: No Accompanied by: Self / Same As Patient Allergies erythromycin base Allergy (Severe, Verified 09/26/25 08:53) rash sulfamethoxazole (From Bactrim) Allergy (Severe, Verified 09/26/25 08:53) Rash trimethoprim (From Bactrim) Allergy (Severe, Verified 09/26/25 08:53) Rash Penicillins Allergy (Mild, Verified 09/26/25 08:53) gi upset HPI Comments Details: 65 y/o right handed female comes for a follow up of lower extremity pain and sleep disturbances. NCS / EMG 04/2025 abnormal study of the r. common peroneal nerve, prolonged latency and small amplitude. Labs 05/2025 pending from [facility]. She had a fall as her heel caught the edge of the threshold walking into the garage 2 weeks ago, did not sustain injuries. Pt states her leg cramps have improved since starting PT at [facility] in [place] for 9 weeks now. She is no longer supplementing for hydration with electrolyte balance formulas. 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 She wakes up with cramps bilaterally in hamstrings, due to sciatica, and paresthesias with twitching in the calves. The pain was so severe, feet and toes curled bilaterally and it would keep her up at night, and interrupt her sleep. She says since going to PT and doing the exercises her cramps have now improved, and she is sleeping better now since the l. lateral thigh and hip pain has abated. Denies foot drop or weakness of the feet. She can sleep for 6 hours a night, her says she snores occasionally. She denies morning headaches, clenching of the jaw and mood irritability. Denies parasomnias, and abnormal sleep behaviors. She has neck pain and stiffness in the mornings, she gets massages and uses ice packs for relief. She says the chronic fatigue and sleep has now improved. She goes to bed at 10p and wakes up at 6am. She had sleep study 15 years ago. [facility] Medical History Nocturnal leg cramps Elbow dislocation Carpal tunnel syndrome Osteoporosis Surgical History S/P trigger finger release H/O parathyroidectomy History of tonsillectomy and adenoidectomy History of rotator cuff surgery Family History Father CAD (coronary artery disease) Type 2 diabetes mellitus Mother Pancreatic cancer Type 2 diabetes mellitus Sister Type 2 diabetes mellitus Ovarian carcinoma Social History Alcohol intake: current Comment: 1 glass of wine Patient Tobacco Use Status: Never used Tobacco Physical Exam Vital Signs: Last Vital Signs Pulse 67 09/26/25 08:53 BP 132/80 09/26/25 08:53 Pulse Ox 97 09/26/25 08:53 Oxygen Delivery Method Room Air 09/26/25 08:53 BMI result Body Mass Index 25.6 Const General: cooperative, comfortable and no acute distress Nutritional Appearance: average body habitus Orientation/consciousness: patient oriented x3 HEENT Face and sinus: Yes face symmetric Teeth and gingiva: other ([place]i score is 4) Eyes Pupils: Equal, round and reactive pupils present Neck Other: limited rom on the l/r/ and flexion / extension Resp Effort & Inspection: normal respiratory effort and able to speak in complete sentences Neuro General: patient oriented x3 and moves all extremities Cranial nerves: Yes Equal, round and reactive pupils present, Yes Normal accommodation reflex present, Yes Normal facial strength present, Yes Midline tongue present, Yes Ability to bilaterally elevate shoulders present and Yes Other cranial nerve findings present (stiff neck and trapezius with limited rom on rotation/ and flexion / ext) Gait exam (Neuro): Normal gait present Motor exam (neuro): 5/5 motor strength present throughout and Normal motor muscle tone present throughout Deep tendon reflexes (DTR's): Right triceps reflex intensity grade: 2+, Left triceps reflex intensity grade: 2+, Rt Biceps (C5, C6): 2+, Left biceps reflex intensity grade: 2+, Right brachioradialis reflex intensity grade: 2+, Left brachioradialis reflex intensity grade: 2+, Right patellar reflex intensity grade: 2+, Left patellar reflex intensity grade: 2+, Right ankle reflex intensity grade: 2+ and Left ankle reflex intensity grade: 2+ Coordination: wgjheb-jr-vzdi test normal Psych Appearance: grossly normal Affect: normal affect Thought process: Normal thought process present Results Reviewed Results Reviewed: EMG/ NCS study. Assessment & Plan Assessment & Plan (1) Periodic limb movements of sleep: Comment: HST first if inconclusive will send her in lab for PSG Code(s): G47.61 - Periodic limb movement disorder Category: Medical (2) RLS (restless legs syndrome): Comment: gabapentin Code(s): G25.81 - Restless legs syndrome Category: Medical (3) Nocturnal leg cramps: Comment: calves and feet Code(s): G47.62 - Sleep related leg cramps Category: Medical (4) Elevated vitamin B12 level: Code(s): R79.89 - Other specified abnormal findings of blood chemistry Category: Medical (5) Bilateral leg cramps: Code(s): R25.2 - Cramp and spasm Category: Medical (6) Bursitis of left hip: Comment: PT Code(s): M70.72 - Other bursitis of hip, left hip Category: Medical Qualifiers: Hip bursitis location: unspecified Qualified Code(s): M70.72 - Other bursitis of hip, left hip (7) Cervicalgia: Comment: PT Code(s): M54.2 - Cervicalgia Category: Medical Plan Excessive daytime fatigue will do an HST to r/o aquilino and or PLMD. Pt declines. PLMD and RLS Labs reviewed with pt. will submit new labs to check B12/ Ferritin/ Homocystein/ MMA / TSH/K-/ CMP/ CBC for anemia. B12 is elevated, take B12 every other day for the next 3 months. May continue alpha-lipoic acid orally 200mg po daily otc. continue magnesium 400mg po daily at bedtime. PT for common peroneal nerve prolonged latencies and L. hip bursitis. PT for stiffness/ neck pain due to Cervicalgia. Discontinued gabapentin, ineffective. F/U as needed in 6months or if symptoms are worse. Coding Level of Care Code Est Pt Level 4 (90068) Diagnoses Periodic limb movements of sleep G47.61 RLS (restless legs syndrome) G25.81 Nocturnal leg cramps G47.62 Elevated vitamin B12 level R79.89 Bilateral leg cramps R25.2 Bursitis of left hip, unspecified bursa M70.72 Hip bursitis location: unspecified Cervicalgia M54.2
[2025-09-26 08:53] VITALS: BP 132/80; PULSE 67; O2SAT 97; BMI 25.6
--- OUTSIDE RECORDS SUMMARY | 2025-09-26 09:10 | XMS_ITS | Encounter Summary ---
Author Organization [facility] Address [address] [place] [address] Phone Care Team Providers Care Infirmary Attendant Name Role Phone Shay Stephens DO Unavailable [phone] Linh Gong FORMAL SERVICE WAITER Primary Care Provider Geeta Crane FORMAL SERVICE WAITER Primary Care Provider Encounter Details Date Type Department Care Team (Late st Contact Info) Description 05/22/2023 Transcribe Orders Virtual Department 30 [place] [address] Linh Gong, BAUDILIO 35 [facility] [address] [place] [address] Breast screening (Primary Dx) Social History Tobacco [...] as of this encounter Plan of Treatment Upcoming Encounters Date Type Department Care Team (Late st Contact Info) Description 09/26/2025 3:45 PM EST Appointment [address] [place] [address] Geeta Crane, BAUDILIO [address] [address] [email or web address] documented as of this encounter Results * [...] There are scattered fibroglandular densities. Linh Gong FORMAL SERVICE WAITER IMG MG EXAMS Final Result documented in this encounter Visit Diagnoses Diagnosis Breast screening- Primary Breast screening, unspecified Breast screening Breast screening, unspecified documented in this encounter Additional Health Concerns Assessment Noted Time PHQ-2 Depression Total Score: 0 07/23/20 22 12:08 PM EDT documented as of this encounter Care Teams Infirmary Attendant Relationship Specialty Start Date End Date Linh Gong, BAUDILIO [address] [address] PCP - General Nurse Practitioner 05/22/23 09/16/24 Geeta Crane NP [address] [place] [address] [place] [address] [email or web address] PCP - General Nurse Practitioner 09/17/24 Shay Stephens DO [address] [place] [address] Orthopedics & Sports Medicine, [place] [address] [email or web address] Historical LMR Provider 07/16/17 documented as of this encounter Additional Source Comments The information contained in this document represents components of the legal health record. It is not the complete legal health record.[facility]
--- OUTSIDE RECORDS SUMMARY | 2025-09-26 09:10 | XMS_ITS | Encounter Summary ---
Author Organization [facility] Address [address] [place] [address] Phone Care Team Providers Care Instructional Technology Teacher Name Role Phone [place], Shay Shabazz DO Unavailable [phone] Linh Gong FRAME SAMPLE AND PATTERN SUPERVISOR Primary Care Provider Geeta Crane FRAME SAMPLE AND PATTERN SUPERVISOR Primary Care Provider Encounter Details Date Type Department Care Team (Late st Contact Info) Description 05/18/2024 Procedure Pass [facility] - [address] [place] [address] Social History Tobacco Use Types Packs/Day Years [...] Info) Description 09/26/2025 3:45 PM EST Appointment [address] [place] [address] Geeta Crane NP [address] [address] [email or web address] documented as of this encounter Visit Diagnoses Not on filedocumented in this encounter Additional Health Concerns Assessment Noted Time PHQ-2 Depression Total Score: 0 07/23/20 22 12:08 PM EDT documented as of this encounter Care Teams Instructional Technology Teacher Relationship Specialty Start Date End Date Linh Gong NP [address] [place] [address] PCP - General Nurse Practitioner 05/22/23 09/16/24 Geeta Crane NP [address] [place] [address] [place] [address] [email or web address] PCP - General Nurse Practitioner 09/17/24 Shay Stephens DO [address] [place] [address] Orthopedics & Sports Medicine, [place] [address] [email or web address] Historical LMR Provider 07/16/17 documented as of this encounter Additional Source Comments The information contained in this document represents components of the legal health record. It is not the complete legal health record.[facility]
--- OUTSIDE RECORDS SUMMARY | 2025-09-26 09:10 | XMS_ITS | Encounter Summary ---
Author Organization [facility] Address [address] [place] [address] Phone Care Team Providers Care Print Color Matcher Name Role Phone [place]Sh[place] DO Unavailable [phone] Kavita Schneider PA-C Unavailable Trell Vásquez MD Unavailable Doris Martin RD Unavailable [email or web address] Cameron Dutton Unavailable [phone] Didi Suarez MD Primary Care Provider Linh Gong STUDENT AMBASSADOR Primary Care Provider Geeta Crane STUDENT AMBASSADOR Primary Care Provider Encounter Details Date Type Department Care Team (Late st Contact Info) Description 04/05/2019 Ancillary Orders Virtual Department 30 [place] [address] Didi Suarez MD 25 [place] [address] Breast screening Social History Tobacco Use Types [...] Info) Description 09/26/2025 3:45 PM EST Appointment [address] [place], [place] [address] Geeta Crane, BAUDILIO [address] [place] [address] [email or web address] documented as of this encounter Results [...] Images interpreted in conjunction with R-2 Image Radio Intelligence Operator computer-aided detection (CAD). FINDINGS: BREAST COMPOSITION: [...] mammography. POS - [facility] Didi Suarez MD IM MG EXAMS Final Result documented in this encounter Visit Diagnoses Diagnosis Breast screening Breast screening, unspecified Breast screening Breast screening, unspecified documented in this encounter Care Teams Print Color Matcher Relationship Specialty Start Date End Date Didi Suarez MD 40 [place] [address] PCP - General Internal Medicine 03/11/18 05/21/23 Linh Gong NP [address] [address] PCP - General Nurse Practitioner 05/22/23 09/16/24 Geeta Crane NP [address] [place] [address] [place] [address] [email or web address] PCP - General Nurse Practitioner 09/17/24 Shay Stephens DO 4 [facility], [place] [address] Historical LMR Provider 07/16/17 Kavita Schneider PA-C 4 [facility], [place] [address] Historical LMR Provider 07/16/17 10/06/21 Trell Vásquez MD 22 [facility], [facility] 102 [place] [address] Historical LMR Provider 07/16/17 10/06/21 Doris Martin, RDCS Historical LMR Provider 07/16/17 10/06/21 Cameron Dutton PA 40 [place] [address] Historical LMR Provider 07/16/17 2 documented as of this encounter Additional Source Comments The information contained in this document represents components of the legal health record. It is not the complete legal health record.[facility]
--- OUTSIDE RECORDS SUMMARY | 2025-09-26 09:10 | XMS_ITS | Encounter Summary ---
Author Organization [facility] Address [address] [place] [address] Phone Care Team Providers Care Newspaper Or Periodical Editor Name Role Phone CenterbrookShay DO Unavailable [phone] Kavita Schneider PA-C Unavailable [phone] Trell Vásquez MD Unavailable Doris Martin RD Unavailable [email or web address] Cameron Dutton Unavailable Didi Suarez MD Primary Care Provider [phone] Linh Gong EXTRACTOR PLANT OPERATOR Primary Care Provider Geeta Crane EXTRACTOR PLANT OPERATOR Primary Care Provider Encounter Details Date Type Department Care Team (Late st Contact Info) Description 04/20/2021 Ancillary Orders Virtual Department 30 [place] [address] Didi Suarez MD 25 [place] [address] Breast screening Social History Tobacco Use Types [...] Info) Description 09/26/2025 3:45 PM EST Appointment [address] [place], [place] [address] Geeta Crane, BAUDILIO [address] Yohannes 1 [facility] [place] [address] [email or web address] documented as of this encounter Results * [...] unspecified documented in this encounter Care Teams Newspaper Or Periodical Editor Relationship Specialty Start Date End Date Didi Suarez MD 40 [place] [address] PCP - General Internal Medicine 03/11/18 05/21/23 Linh Gong, BAUDILIO 300 [facility] Tika [address] [address] PCP - General Nurse Practitioner 05/22/23 09/16/24 Geeta Crane NP [address] [place] [address] [place] [id number] [email or web address] PCP - General Nurse Practitioner 09/17/24 Shay Stephens DO 4 [facility] Orthopedics & Sports [facility], [place] [address] Historical LMR Provider 07/16/17 Kavita Schneider PA-C 4 [facility] Orthopedics Sports [facility], [place], [place] [phone] Historical LMR Provider 07/16/17 10/06/21 Trell Vásquez MD [address] [place] [address] Historical LMR Provider 07/16/17 10/06/21 Doris Martin RDCS Historical LMR Provider 07/16/17 10/06/21 Cameron Dutton PA 40 [place] [address] Historical LMR Provider 07/16/17 2 documented as of this encounter Additional Source Comments The information contained in this document represents components of the legal health record. It is not the complete legal health record.[facility]
--- OUTSIDE RECORDS SUMMARY | 2025-09-26 09:10 | XMS_ITS | Encounter Summary ---
Author Organization [facility] Address [address] [place] [address] Phone Care Team Providers Care Client Onboarding Analyst Name Role Phone Shay Stephens DO Unavailable [phone] Geeta Crane NP Primary Care Provider Encounter Details Date Type Department Care Team (Late st Contact Info) Description 06/21/2025 Procedure Pass [address] [place] [address] Social History Tobacco Use Types Packs/Day Years [...] Info) Description 09/26/2025 3:45 PM EST Appointment [address] [place] [address] Geeta Crane NP [address] [address] [email or web address] documented as of this encounter Visit Diagnoses Not on filedocumented in this encounter Additional Health Concerns Assessment Noted Time PHQ-2 Depression Total Score: 0 07/23/20 22 12:08 PM EDT documented as of this encounter Care Teams Client Onboarding Analyst Relationship Specialty Start Date End Date Geeta Crane NP [address] [place] [address] [place] [address] [email or web address] PCP - General Nurse Practitioner 09/17/24 Shay Stephens DO [address] [place] [address] Orthopedics & Sports Medicine, [facility] [place] [address] [email or web address] Historical LMR Provider 07/16/17 documented as of this encounter Additional Source Comments The information contained in this document represents components of the legal health record. It is not the complete legal health record.[facility]
--- OUTSIDE RECORDS SUMMARY | 2025-09-26 09:10 | XMS_ITS | Clinical Summary ---
Author Organization [employer] [facility] Prior to 02/26/[address] [place] [address] Care Team Providers Care Instrument Panel Assembler Name Role Phone Unknown, Primary Care Provider [...] age to complete this topic Care Teams Instrument Panel Assembler Relationship Specialty Start Date End Date Unknown, PCP - General 09/03/23
--- OUTSIDE RECORDS SUMMARY | 2025-09-26 09:10 | XMS_ITS | Encounter Summary ---
Author Organization [facility] Address [address] [place] [address] Phone Care Team Providers Care Toter Name Role Phone OliveburgShay DO Unavailable Kavita Schneider PA-C Unavailable Trell Vásquez MD Unavailable Doris Martin RD Unavailable [email or web address] Cameron Dutton Unavailable [phone] Didi Suarez MD Primary Care Provider Linh Gong DRAWER IN JACQUARD LOOM Primary Care Provider Geeta Crane DRAWER IN JACQUARD LOOM Primary Care Provider Encounter Details Date Type Department Care Team (Late st Contact Info) Description 04/10/2020 Ancillary Orders Virtual Department 30 [place] [address] Didi Suarez MD 25 [place] [address] Breast screening Social History Tobacco Use Types [...] Info) Description 09/26/2025 3:45 PM EST Appointment [address] [place] [address] Geeta Crane NP 35 [facility] 1 [place] [address] [email or web address] documented as of this encounter Results [...] unspecified documented in this encounter Care Teams Toter Relationship Specialty Start Date End Date Didi Suarez MD 40 [place] [address] PCP - General Internal Medicine 03/11/18 05/21/23 Linh Gong NP 300 [facility] 102 [place] [address] PCP - General Nurse Practitioner 05/22/23 09/16/24 Geeta Crane, BAUDILIO [address] [place] [address] [place] [address] [email or web address] PCP - General Nurse Practitioner 09/17/24 Shay Stephens DO 4 [facility] Orthopedics & Sports [facility], [place] [address] Historical LMR Provider 07/16/17 Kavita Schneider PA-C 4 [facility] [place] [address] Historical LMR Provider 07/16/17 10/06/21 Trell Vásquez MD 22 [facility], [address] [place] [address] Historical LMR Provider 07/16/17 10/06/21 Doris Martin, RDCS Historical LMR Provider 07/16/17 10/06/21 Cameron Dutton PA [address] [place] [address] Historical LMR Provider 07/16/17 2 documented as of this encounter Additional Source Comments The information contained in this document represents components of the legal health record. It is not the complete legal health record.[facility]
--- OUTSIDE RECORDS SUMMARY | 2025-09-26 09:10 | XMS_ITS | Encounter Summary ---
Author Organization [facility] Address [address] [place] [address] Phone Care Team Providers Care Rnp Name Role Phone Shay Stephens DO Unavailable Kavita Schneider PA-C Unavailable [phone] Trell Vásquez MD Unavailable [phone] Unavailable [email or web address] Cameron Dutton Unavailable Didi Suarez MD Primary Care Provider Linh Gong SUPPORT TEACHER Primary Care Provider Geeta Crane SUPPORT TEACHER Primary Care Provider Encounter Details Date Type Department Care Team (Late st Contact Info) Description 04/20/2021 Procedure Pass [facility] - [address] [place] [address] Social History Tobacco Use Types Packs/Day Years [...] Info) Description 09/26/2025 3:45 PM EST Appointment [address] [place] [address] Geeta Crane, BAUDILIO [address] [address] [email or web address] documented as of this encounter Visit Diagnoses Not on filedocumented in this encounter Care Teams Rnp Relationship Specialty Start Date End Date Didi Suarez MD 40 [place] [address] [email or web address] PCP - General Internal Medicine 03/11/18 05/21/23 Linh Gong NP [address] [address] PCP - General Nurse Practitioner 05/22/23 09/16/24 Geeta Crane NP [address] [place] [address] [place] [address] [email or web address] PCP - General Nurse Practitioner 09/17/24 Shay Stephens DO 4 [facility] Orthopedics & Sports [facility], [place] [address] Historical LMR Provider 07/16/17 Kavita Schneider PA-C 4 [facility], [place] [address] Historical LMR Provider 07/16/17 10/06/21 Trell Vásquez MD [address] [place] [address] Historical LMR Provider 07/16/17 10/06/21 Doris Martin RDCS Historical LMR Provider 07/16/17 10/06/21 Cameron Dutton PA 40 [place] [address] Historical LMR Provider 07/16/17 2 documented as of this encounter Additional Source Comments The information contained in this document represents components of the legal health record. It is not the complete legal health record.[facility]
--- OUTSIDE RECORDS SUMMARY | 2025-09-26 09:10 | XMS_ITS | Encounter Summary ---
Author Organization [facility] Address [address] [place] [address] Phone Care Team Providers Care Early Intervention Specialist Name Role Phone [place], Shay Shabazz DO Unavailable [phone] Linh Gong SHRIMP POND LABORER Primary Care Provider Geeta Crane SHRIMP POND LABORER Primary Care Provider Encounter Details Date Type Department Care Team (Late st Contact Info) Description 05/22/2023 Procedure Pass [facility] - [address] [place] [address] Social History Tobacco Use Types Packs/Day Years [...] Info) Description 09/26/2025 3:45 PM EST Appointment [address] [place] [address] Geeta Crane NP [address] [address] [email or web address] documented as of this encounter Visit Diagnoses Not on filedocumented in this encounter Additional Health Concerns Assessment Noted Time PHQ-2 Depression Total Score: 0 07/23/20 22 12:08 PM EDT documented as of this encounter Care Teams Early Intervention Specialist Relationship Specialty Start Date End Date Linh Gong NP [address] [place] [address] PCP - General Nurse Practitioner 05/22/23 09/16/24 Geeta Crane NP [address] [place] [address] [place] [address] [email or web address] PCP - General Nurse Practitioner 09/17/24 Shay Stephens DO [address] [place] [address] Orthopedics & Sports Medicine, [place] [address] [email or web address] Historical LMR Provider 07/16/17 documented as of this encounter Additional Source Comments The information contained in this document represents components of the legal health record. It is not the complete legal health record.[facility]
--- OUTSIDE RECORDS SUMMARY | 2025-09-26 09:10 | XMS_ITS | Encounter Summary ---
Author Organization [facility] Address [address] [place] [address] Phone Care Team Providers Care Retail Specialist Name Role Phone Shay Stephens DO Unavailable Didi Suarez MD Primary Care Provider [phone] Linh Gong NP Primary Care Provider Geeta Crane NP Primary Care Provider Encounter Details Date Type Department Care Team (Late st Contact Info) Description 07/24/2022 Procedure Pass [address] [place] [address] Social History Tobacco Use Types Packs/Day Years [...] Info) Description 09/26/2025 3:45 PM EST Appointment [address] [place] [address] Geeta Crane NP [address] [address] [email or web address] documented as of this encounter Visit Diagnoses Not on filedocumented in this encounter Additional Health Concerns Assessment Noted Time PHQ-2 Depression Total Score: 0 07/23/20 22 12:08 PM EDT documented as of this encounter Care Teams Retail Specialist Relationship Specialty Start Date End Date Didi Suarez MD [address] [place] [address] Orthopedics Sports [facility], [place] [address] [email or web address] PCP - General Internal Medicine 03/11/18 05/21/23 Linh Gong, BAUDILIO 300 [place] [place] [address] PCP - General Nurse Practitioner 05/22/23 09/16/24 Geeta Crane NP [address] [place] [address] [place] [address] [email or web address] PCP - General Nurse Practitioner 09/17/24 Shay Stephens DO [address] [place] [address] Orthopedics Sports [facility], [place] [address] [email or web address] Historical LMR Provider 07/16/17 documented as of this encounter Additional Source Comments The information contained in this document represents components of the legal health record. It is not the complete legal health record.[facility]
--- OUTSIDE RECORDS SUMMARY | 2025-09-26 09:10 | XMS_ITS | Encounter Summary ---
Author Organization [facility] Address [address] [place] [address] Phone Care Team Providers Care International Exchange Coordinator Name Role Phone Odalys Stephenskorey Shabazz DO Unavailable [phone] Linh Gong EXTRACTOR AND WRINGER OPERATOR Primary Care Provider Geeta Crane EXTRACTOR AND WRINGER OPERATOR Primary Care Provider Encounter Details Date Type Department Care Team (Latest Contact Info) Description 05/18/2024 Transcribe Orders Virtual Department 30 [place], [place] [phone] Chau Godwin MD [address] [address] Breast screening (Primary Dx) Social [...] Info) Description 09/26/2025 3:45 PM EST Appointment [address] [place] [address] Geeta Crane, BAUDILIO [address] [place] [address] [email or web address] documented as of this encounter Results * [...] documented as of this encounter Care Teams International Exchange Coordinator Relationship Specialty Start Date End Date Linh Gong NP 300 [place] [address] PCP - General Nurse Practitioner 05/22/23 09/16/24 Geeta Crane NP [address] [place] [address] [place] [address] [email or web address] PCP - General Nurse Practitioner 09/17/24 Shay Stephens DO [address] [place] [address] Orthopedics & Sports Medicine, [place] [address] [email or web address] Historical LMR Provider 07/16/17 documented as of this encounter Additional Source Comments The information contained in this document represents components of the legal health record. It is not the complete legal health record.[facility]
--- OUTSIDE RECORDS SUMMARY | 2025-09-26 09:10 | XMS_ITS | Encounter Summary ---
Author Organization [facility] Address [address] [place] [address] Phone Care Team Providers Care Anesthesiology Resident Name Role Phone Shay Stephens DO Unavailable [phone] Kavita Schneider PA-C Unavailable Trell Vásquez MD Unavailable Doris Martin RD Unavailable [email or web address] Cameron Dutton Unavailable Didi Suarez MD Primary Care Provider Linh Gong SHEEP SHEARER Primary Care Provider Geeta Crane SHEEP SHEARER Primary Care Provider Encounter Details Date Type Department Care Team (Late st Contact Info) Description 05/30/2020 Procedure Pass [facility] - [address] [place] [address] Social History Tobacco Use Types Packs/Day Years [...] Info) Description 09/26/2025 3:45 PM EST Appointment [facility] - [address] [place] [address] Geeta Crane, BAUDILIO [address] [address] [email or web address] documented as of this encounter Visit Diagnoses Not on filedocumented in this encounter Care Teams Anesthesiology Resident Relationship Specialty Start Date End Date Didi Suarez MD 40 [place] [address] [email or web address] PCP - General Internal Medicine 03/11/18 05/21/23 Linh Gong NP [address] [address] PCP - General Nurse Practitioner 05/22/23 09/16/24 Geeta Crane NP [address] [place] [address] [place] [address] [email or web address] PCP - General Nurse Practitioner 09/17/24 Shay Stephens DO 4 [facility] [place] [facility] Orthopedics & Sports [facility], [place], [place] [address] Historical LMR Provider 07/16/17 Kavita Schneider PA-C 4 [facility] Orthopedics Sports [facility], [place], [place] [phone] Historical LMR Provider 07/16/17 10/06/21 Trell Vásquez MD [address] [place] [address] Historical LMR Provider 07/16/17 10/06/21 Doris Martin RDCS Historical LMR Provider 07/16/17 10/06/21 Cameron Dutton PA 40 [place] [address] Historical LMR Provider 07/16/17 2 documented as of this encounter Additional Source Comments The information contained in this document represents components of the legal health record. It is not the complete legal health record.[facility]
--- OUTSIDE RECORDS SUMMARY | 2025-09-26 09:10 | XMS_ITS | Clinical Summary ---
Author Organization [facility] Address [address] [place] [phone] Phone Care Team Providers Care Drafter (Cad) Electrical Name Role Phone Chau Godwin MD Primary Care Provider [phone] Allergies Active Allergy Reactions Criticality Noted Date Comments Cephalosporins 06/27/2016 Penicillin G 06/27/2016 Sulfa (Sulfonamide Antibiotics) 05/31 Sulfamethoxazole-Trimethoprim 2015 Medications multivitamin (MULTIPLE VITAMINS ORAL) Take by mouth. Active CHOLECALCIFEROL, VITAMIN D3, ORAL Take by mouth. 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 SARS-CoV-2 COVID -19, vector-nr, rS-Ad26, preservative free 12/16/2020 Surgical History Surgery Date Site/Laterality Comments OTHER SURGICAL HISTORY PROCEDURE: [place] DILATION & CURETTAGE DX&/THER NONOBSTETRIC OTHER SURGICAL [...] for your loved ones. For example, child and adolescent therapist or elderly care for an older adult? [...] Date Recorded What is your living situation? Unrecognized valu e 12/13/2024 Comments No Sex and Gender Information [...] Health Maintenance Due Date Last Done Comments Colorectal Cancer Screening: Colonoscopy 1961 Pneumococcal Vaccine: 50+ Years (1 of 1 - PCV) 2011 Zoster Vaccines (1 of 2) 2011 HIV Screening 09/07/2022 Osteoporosis Screening (Bone Density Screening) 09/07/2022 COVID-19 Vaccine ( season) 2025 08/19/2024, 08/05/2022, 04/19/2022, Additional history exists Influenza Vaccine (#1) 2025 , 07/28/2023, 07/29/2022, Additional history exists Social Influencers of Health Screening 12/13/2025 12/13/2024 Breast Cancer Screening 09/17/2026 09/17/2024 Cholesterol Screening (Lipid Panel) 07/26/2027 07/26/2022 Cervical Cancer Screening: HPV 12/14/2027 12/13/2022 DTaP,Tdap,and Td Vaccines (3 - Td or Tdap) 09/07/2034 09/07/2024, 07/04/2009 RSV Immunization Adult Patients (1 - 1-dose 75+ series) 2036 Hepatitis C Screening Completed 07/26/2022 Depression Screening Completed 12/13/2024 HIB Vaccines Aged [...] Most Recently Relevant to Health Maintenance Insurance [facility] Care Teams Drafter (Cad) Electrical Relationship Specialty Start Date End Date Chau Godwin MD [address] [place] [phone] PCP - General Internal Medicine 12/14/24
--- OUTSIDE RECORDS SUMMARY | 2025-09-26 09:11 | XMS_ITS | Encounter Summary ---
Author Organization [facility] Address [address] [place] [address] Phone Care Team Providers Care Sales Program Manager Name Role Phone Shay Stephens DO Unavailable Kavita Schneider PA-C Unavailable Trell Vásquez MD Unavailable Doris Martin RD Unavailable [email or web address] Cameron Dutton Unavailable Didi Suarez MD Primary Care Provider Linh Gong NOTCH GRINDER Primary Care Provider Geeta Crane NOTCH GRINDER Primary Care Provider Encounter Details Date Type Department Care Team (Late st Contact Info) Description 11/03/2018 Procedure Pass [facility], [address] [place] [address] Social History Tobacco Use Types Packs/Day Years [...] Info) Description 09/26/2025 3:45 PM EST Appointment [facility] - [address] [place] [address] Geeta Crane, BAUDILIO [address] [address] [email or web address] documented as of this encounter Visit Diagnoses Not on filedocumented in this encounter Care Teams Sales Program Manager Relationship Specialty Start Date End Date Didi Suarez MD 40 [place] [address] PCP - General Internal Medicine 03/11/18 05/21/23 Linh Gong NP [address] [address] PCP - General Nurse Practitioner 05/22/23 09/16/24 Geeta Crane, BAUDILIO [address] [place] [address] [place] [address] [email or web address] PCP - General Nurse Practitioner 09/17/24 Shay Stephens DO 4 [facility] Orthopedics & Sports [facility], [place], [place] [phone] Historical LMR Provider 07/16/17 Kavita Schneider PA-C 4 [facility] Orthopedics Sports [facility], [place], [place] [phone] Historical LMR Provider 07/16/17 10/06/21 Trell Vásquez MD [address] [place] [address], [facility] 102 [place], [place] [phone] Historical LMR Provider 07/16/17 10/06/21 Doris Martin RDCS Historical LMR Provider 07/16/17 10/06/21 Cameron Dutton PA 40 [place] [address] Historical LMR Provider 07/16/17 2 documented as of this encounter Additional Source Comments The information contained in this document represents components of the legal health record. It is not the complete legal health record.[facility]
--- OUTSIDE RECORDS SUMMARY | 2025-09-26 09:11 | XMS_ITS | Patient Health Record ---
Author Organization [facility] Address [address] [place] [address] Care Team Providers Care Transplant Nurse Name Role Phone Didi Suarez MD Primary Care Provider Unavail able Black, Brinda Unavailable [phone] Allergies Allergen (clinical drug ingredient) Drug/Non Drug [...] Route Administration Date Status Comme nts COVID-19 [employer] Unknown 08/13/2021 Administered 1st dose: Social History [...] Insured Coverage Start Date Coverage End Date [facility] [address] [place] [id number] Rosa Loza Self - patient is the insured Medical (General) History Medical History History ICD Code Anxiety Arthritis Back,Hip,and Knee pain Broken bones CAD (Cholesterol) Headaches/Migraines Heart disease [place] Syndrome Liver disease Osteoporosis Osteopenia Eczema chronic [...]
--- OUTSIDE RECORDS SUMMARY | 2025-09-26 09:11 | XMS_ITS | Encounter Summary ---
Author Organization [facility] Address [address] [place] [address] Phone Care Team Providers Care Cane Cutter Name Role Phone Kat Shay Shabazz DO Unavailable [phone] Didi Suarez MD Primary Care Provider [phone] Linh Gong [employer] Primary Care Provider Geeta Crane [employer] Primary Care Provider Encounter Details Date Type Department Care Team (Late st Contact Info) Description 03/03/2023 Procedure Pass [facility] Endoscopy Admitting Dept Virtual Department [address] [place] [address] Social History Tobacco Use Types Packs/Day Years [...] Info) Description 09/26/2025 3:45 PM EST Appointment [address] [place] [address] Geeta Crane NP 35 [facility] 1 [place] [address] [email or web address] documented as of this encounter Visit Diagnoses Not on filedocumented in this encounter Additional Health Concerns Assessment Noted Time PHQ-2 Depression Total Score: 0 07/23/20 22 12:08 PM EDT documented as of this encounter Care Teams Cane Cutter Relationship Specialty Start Date End Date Didi Suarez MD [address] [place] [address] Orthopedics & Sports Medicine, [place] [address] [email or web address] PCP - General Internal Medicine 03/11/18 05/21/23 Linh Gong NP [address] [address] PCP - General Nurse Practitioner 05/22/23 09/16/24 Geeta Crane NP [address] [place] [address] [place] [address] [email or web address] PCP - General Nurse Practitioner 09/17/24 Shay Stephens DO [address] [place] [address] Orthopedics & Sports Medicine, [facility] [place] [place] [address] [email or web address] Historical LMR Provider 07/16/17 documented as of this encounter Additional Source Comments The information contained in this document represents components of the legal health record. It is not the complete legal health record.[facility]
--- OUTSIDE RECORDS SUMMARY | 2025-09-26 09:11 | XMS_ITS | Encounter Summary ---
Author Organization [facility] Address [address] [place] [address] Phone Care Team Providers Care Senior Quality Control Inspector Name Role Phone CaulfieldShay DO Unavailable Kavita Schneider PA-C Unavailable [phone] Trell Vásquez MD Unavailable Doris Martin RD Unavailable [email or web address] Cameron Dutton Unavailable [phone] Didi Suarez MD Primary Care Provider Linh Gong ATTENDING PHYSICIAN Primary Care Provider Geeta Crane ATTENDING PHYSICIAN Primary Care Provider Encounter Details Date Type Department Care Team (Late st Contact Info) Description 05/18/2018 Ancillary Orders Virtual Department 30 [place] [address] Didi Suarez MD 25 [place] [address] Breast screening Social History Tobacco Use Types [...] Info) Description 09/26/2025 3:45 PM EST Appointment [address] [place], [place] [address] Geeta Crane, BAUDILIO [address] Yohannes 1 [place] [address] [email or web address] documented as of this encounter Results [...] documented in this encounter Care Teams Senior Quality Control Inspector Relationship Specialty Start Date End Date Didi Suarez MD 40 [place] [address] [email or web address] PCP - General Internal Medicine 03/11/18 05/21/23 Linh Gong, BAUDILIO [facility] [place] [address] [address] PCP - General Nurse Practitioner 05/22/23 09/16/24 Geeta Crane NP [address] [place] [address] [place] [address] [email or web address] PCP - General Nurse Practitioner 09/17/24 Shay Stephens DO [address] [place] [address] Orthopedics & Sports [facility], [place] [address] [email or web address] Historical LMR Provider 07/16/17 Kavita Schneider PA-C 4 [facility] Orthopedics Sports [facility], [place] [address] [email or web address] Historical LMR Provider 07/16/17 10/06/21 Trell Vásquez MD 22 [facility] 102 [place] [address] Historical LMR Provider 07/16/17 10/06/21 Doris Martin RDCS Historical LMR Provider 07/16/17 10/06/21 Cameron Dutton PA 40 [place] [address] Historical LMR Provider 07/16/17 2 documented as of this encounter Additional Source Comments The information contained in this document represents components of the legal health record. It is not the complete legal health record.[facility]
--- OUTSIDE RECORDS SUMMARY | 2025-09-26 09:11 | XMS_ITS | Clinical Summary ---
Author Organization [facility] Address [address] [place] [address] Phone Care Team Providers Care Consultant [employer]. Vice President [employer] ) Name Role Phone Shay Stephens DO Unavailable [phone] Geeta Crane NP Primary Care Provider Allergies [...] Encounters Date Type Department Care Team Description 06/21/2025 Procedure Pass [facility] [address] [place] [address] from Last 3 Months Immunizations Immunization Administration Dates Next Due COVID-19 [...] 03/03/2023 11:22 AM EDT Plan of Treatment Upcoming Encounters Date Type Department Care Team (Late st Contact Info) Description 09/26/2025 3:45 PM EST Appointment [address] [place] [address] Geeta Crane NP [address] [address] [email or web address] Health Maintenance Due Date Last Done Comments [...] hepatitis C screening test COMPREHENSIVE METABOLIC PANEL (CMP) Routine 07/26/2022 9:01 AM EDT Malaise and [...] be notified of the results and recommendations. us Chau Godwin MD IMG MG EXAMS Margo l Result * ENDOSCOPY, COLON (03/03/2023 12:18 PM EDT) Narrative Transcriptions Joselito Schmidt MD - 03/03/2023 12:18 PM EDT [facility] Patient Name: Rosa Loza Attending MD:: JOSELITO SCHMIDT MD, , Procedure Date: 03/03/2023 12:18 PM Date of : 1960 Age: 62 Admit Type: Outpatient Gender: Female Room: [place] [address] Referring MD: DIDI SIFUENTES Exam Type: Colonoscopy [...] bowel preparation was evaluated using the BBPS ([place] Bowel Preparation Scale)with scores of: Right Colon [...] 12:18 PM Procedure Code(s): --- Professional --- 84760, Colonoscopy, flexible; diagnostic, including collection of specimen(s) by brushing or washing, when performed (separateprocedure) --- Technical --- 01028, Colonoscopy, flexible; diagnostic, including collection of specimen(s) by brushing or washing, when performed (separateprocedure) Diagnosis Code(s): --- Professional --- Z12.11, Encounter for screening for malignantneoplasm of colon K64.8, Other hemorrhoids --- Technical --- Z12.11, Encounter for screening for malignantneoplasm of colon K64.8, Other hemorrhoids CPT copyright 2021 [employer]. All rights reserved. The codes documented in this report are preliminary and upon supplies packer reviewmay be revised to meet current compliance requirements. Procedure Date: 03/03/2023 12:18:[address] [place] [address] us Didi Sifuentes MD GI PROCEDURE ORDERABLES Margo l Result * Comprehensive metabolic panel (07/26/2022 9:01 AM EDT) SODIUM 142 133 - 146 mmol/L [facility] POTASSIUM 4.1 3.3 - 5.1 mmol/L [facility] CHLORIDE 103 96 - 108 mmol/L [facility] CO2 27 21 - 35 mmol/L [facility] BUN 19 6 - 19 mg/dL [facility] CREATININE 0.70 0.5 - 1.5 mg/dL [facility] GLUCOSE 87 70 - 99 mg/dL [facility] ALBUMIN 4.4 3.9 - 4.8 g/dL [facility] TOTAL PROTEIN 7.2 6.5 - 8.0 g/dL [facility] CALCIUM 9.1 8.4 - 10.3 mg/dL [facility] ALKALINE PHOSPHATASE 60 39 - 117 U/L [facility] TOTAL BILIRUBIN 1.0 0.0 - 1.2 mg/dL [facility] AST 24 0 - 37 U/L [facility] ALT 19 0 - 40 U/L [facility] GLOBULIN 2.8 1 - 4.8 g/dL [facility] EGFR 98 >59 mL/min/1.7 3m2 [facility] Comment:Estimated glomerular filtration rate calculated using the CKD-EPI refit equation. ANION GAP 16 10 - 20 mmol/L [facility] Blood 07/26/2022 9:01 AM EDT 07/26/2022 9:04 AM EDT Didi Sifuentes MD LAB BLOOD BKR ORDERABLES Fin al Result Performing Organization Address City/[facility]/ZIP Co de Phone Number [address] [address] * Hepatitis C antibody, qualitative (07/26/2022 9:01 AM EDT) HCV NON-REACTIV E NON-REACTI VE [facility] Blood 07/26/2022 9:01 AM EDT 07/26/2022 9:04 AM EDT Didi Sifuentes MD LAB BLOOD BKR ORDERABLES Fin al Result Performing Organization Address City/[facility]/ZIP Co de Phone Number [address] [address] * (ABNORMAL) Lipid panel (07/26/2022 9:01 AM EDT) HDL 102 mg/dL [facility] Comment: Interpretation <40 mg/dL: Low HDL cholesterol (major risk factor for CHD) Greater than or equal to 60 mg/dL: High HDL cholesterol ( negative risk factor for CHD) HDL - cholesterol is affected by a number of factors, e.g. smoking, excerise, hormones, sex and age. CHOLESTEROL 263(H) 0 - 240 mg/dL [facility] TRIGLYCERIDES 120 30 - 160 mg/dL [facility] LDL 137(H) 50 - 129 mg/dL [facility] Comment: LDL levels in terms of risk for coronary heart disease: <100 mg/dL: Optimal 100-129 mg/dL: Near or above optimal 130-159 mg/dL: Borderline high 160-189 mg/dL: High >190 mg/dL: Very High CARDIAC RISK RATIO 2.6(L) 3.3 - 4.4 C [facility] Blood 07/26/2022 9:01 AM EDT 07/26/2022 9:04 AM EDT us Didi Sifuentes MD LAB BLOOD BKR ORDERABLES Fin al Result Performing Organization Address City/State/[facility] Co de Phone Number [facility] [address] [place] [address] * Outside Glucose,Fasting (04/20/2021) Glucose, fasting - External 80 65 - 99 mg/dL us Historical Provider LAB BLOOD ORDERABLES Margo l Result from Last 3 Months or Most Recently Relevant to Health Maintenance Insurance [facility] Member Subscriber Plan / Payer (Ef fective 2023-Present) Name:Rosa Loza Relation to Subscriber:Self Name:Rosa Loza Payer ID:Not on file Type:O Address: [address] [employer] [facility] Member Subscriber Plan / Payer (Ef fective 2023-Present) Name:Rosa Loza Relation to Subscriber:Self Name:DagoLynnyn Payer ID:Not on file Type:O Address: [address] [employer] [facility] [employer] [facility] [employer] Member Subscriber Plan / Payer (Ef fective 2023-Present) Name:Rosa Loza Relation to Subscriber:Self Name:Rosa Loza Payer ID:Not on file Type:O Address: [address] [employer] [facility] Member Subscriber Plan / Payer (Ef fective 2023-Present) Name:Rosa Loza Relation to Subscriber:Self Name:Rosa Loza Payer ID:Not on file Type:[facility] Address: [address] [employer] Care Teams Consultant [employer]. Vice President [employer] ) Relationship Specialty Start Date End Date Geeta Crane NP [address] [place] [address] [email or web address] PCP - General Nurse Practitioner 09/17/24 Shay Stephens DO [address] [place] [address] Orthopedics & Sports Medicine, [place] [address] [email or web address] Historical LMR Provider 07/16/17 Additional Source Comments The information contained in this document represents components of the legal health record. It is not the complete legal health record.[facility]
--- OUTSIDE RECORDS SUMMARY | 2025-09-26 09:11 | XMS_ITS | Encounter Summary ---
Author Organization [facility] Address [address] [place] [address] Phone Care Team Providers Care Head Men'S Golf Coach Name Role Phone NewportOdalys solomonkorey Shabazz DO Unavailable Didi Suarez MD Primary Care Provider [phone] Linh Gong NP Primary Care Provider Geeta Crane NP Primary Care Provider Encounter Details Date Type Department Care Team (Late st Contact Info) Description 01/07/2023 Procedure Pass [facility] Endoscopy Admitting Dept Virtual Department [address] [place] [address] Social History Tobacco Use Types Packs/Day Years [...] Info) Description 09/26/2025 3:45 PM EST Appointment [address] [place] [address] Geeta Crane, CLINICAL TRIALS ASSISTANT [address] [place] [address] [email or web address] documented as of this encounter Visit Diagnoses Not on filedocumented in this encounter Additional Health Concerns Assessment Noted Time PHQ-2 Depression Total Score: 0 07/23/20 22 12:08 PM EDT documented as of this encounter Care Teams Head Men'S Golf Coach Relationship Specialty Start Date End Date Didi Suarez MD [address] [place] [address] Orthopedics Sports [facility], [place] [address] [email or web address] PCP - General Internal Medicine 03/11/18 05/21/23 Linh Gong, BAUDILIO [address] [place] [address] [address] PCP - General Nurse Practitioner 05/22/23 09/16/24 Geeta Crane NP [address] [place] [address] [place] [phone] [email or web address] PCP - General Nurse Practitioner 09/17/24 Shay Stephens DO [address] [place] [address] Orthopedics Sports [facility], [place] [address] [email or web address] Historical LMR Provider 07/16/17 documented as of this encounter Additional Source Comments The information contained in this document represents components of the legal health record. It is not the complete legal health record.[facility]
== END 2025-09-26 09:35 | disposition home or self-care (01) ==
LOC: HO.HSMS 08:57
PROVIDERS: PCP Internal Medicine; Visit Provider Physician Assistant Medical
DX: G47.61 Periodic limb movement disorder (principal); G25.81 Restless legs syndrome; G47.62 Sleep related leg cramps; R79.89 Other specified abnormal findings of blood chemistry; R25.2 Cramp and spasm; M70.72 Other bursitis of hip, left hip; M54.2 Cervicalgia
CPT/HCPCS: 99214